=== PATIENT | female | born 1965 | race African-American/Black ===

== ENCOUNTER 2018-09-06 01:08 | Inpatient (IN) ==
--- NOTE | 2018-09-06 01:20 | ED ---
HPI General Chief complaint: Stroke Alert Stated complaint: poss stroke Time Seen by Provider: 09/06/18 01:14 Source: patient and EMS Mode of arrival: EMS History of Present Illness HPI narrative: The patient is a 53 year old female who presents to the [facility] emergency department with a history of calling her friend regarding of severe headache sometime prior to arrival. According to ambulance services the patient was last seen normal sometime between 8 and 9 PM. Upon the friends arrival the patient was assisted out of bed and fell to the ground. The patient had flaccid weakness of the left upper and left lower extremity noted. The patient had a left-sided facial droop and slurred speech. Stroke alert was called prior to arrival. The patient reports having a headache on the right side of her head over the caodaism. The patient had one episode of vomiting prior to arrival. The patient denies any prior history of stroke. The patient does have a prior history of hypertension and diabetes mellitus. She denies any prior history of cardiac arrhythmia. On review of systems otherwise, the patient denies having any known recent fevers, cough, congestion, neck pain, chest pain, shortness of breath, abdominal pain, diarrhea, or urinary symptoms. Related Data Home Medications Medication Instructions Recorded Confirmed amlodipine 10 mg PO DAILY 09/06/18 09/06/18 amlodipine 10 mg PO DAILY 09/06/18 09/06/18 amoxicillin 500 mg PO TID 09/06/18 09/06/18 hydrocodone-acetaminophen 2 tab PO Q6H PRN 09/06/18 09/06/18 ibuprofen 600 mg PO QID PRN 09/06/18 09/06/18 ibuprofen 800 mg PO QID PRN 09/06/18 09/06/18 metoprolol tartrate 25 mg PO BID 09/06/18 09/06/18 naproxen 500 mg PO BID 09/06/18 09/06/18 Allergies Allergy/AdvReac Type Severity Reaction Status Date / Time loratadine [From Claritin] Allergy unknown Verified 09/06/18 01:20 Review of Systems ROS: all other systems reviewed are negative PMFSH History History Provided By: Patient and General Cleaner / EMT Medical History Medical History Diabetes (Acute) Hypertension (Acute) Social History Social History Substance History: No History of Abuse Second Hand Smoke Exposure: Yes (Smoke Marijuana daily.) Smoking Status: Former smoker How Often Do You Have a Drink Containing Alcohol: 2 to 4 times a month Recent Travel in [facility] within the Last 8 Weeks: No Recent Out of Country Travel within the Last 8 Weeks: No Exam Const General: cooperative and well developed Nutritional Appearance: well nourished Orientation: alert, awake and oriented x3 HENOH Head: normocephalic and atraumatic Nose: no nasal discharge and no epistaxis Mouth: moist mucous membranes Eyes Sclera: normal sclerae Pupils: PERRL Neck Neck: no meningeal signs, trachea midline and no JVD Resp Effort & Inspection: no use of accessory muscles Auscultation: clear to auscultation bilaterally Cardio Rate: regular rate Rhythm: abnormal rhythm (Frequent PVCs noted on the monitor.) irregularly irregular Heart Sounds: no murmurs GI Inspection: non-distended Palpation: soft, no hepatosplenomegaly and nontender Skin General: dry skin (warm) Neuro General: alert, awake and oriented x3 Cranial Nerves: other (Cranial nerves II through XII are intact except the patient has facial droop on the left side. The patient also has a gaze deficit with looking to the left on extraocular motion testing. The patient has an attention to the left side both upper and lower extremity.) Speech: other (Mildly slurred speech is noted.) Motor: strength abnormal (The patient is noted to have flaccid paralysis of the left upper and left lower extremity. The patient has 5/5 strength in the right upper and right lower extremity.) Sensory Exam: other (The patient has no significant sensation noted at all in the left upper and left lower extremity on dermatomal testing. Normal dermatomal testing on the right side.) Extrem General: normal to inspection, no clubbing, no cyanosis and no edema Psych Mood: congruent mood Affect: normal affect Judgment: judgment good Course Initial Documented Vital Signs Pulse Rate 106 H 09/06/18 01:08 Respiratory Rate 14 09/06/18 01:08 Blood Pressure 157/98 H 09/06/18 01:08 Pulse Oximetry 90 L 09/06/18 01:08 Last Documented Vital Signs Temperature 97.6 F 09/08/18 08:00 Pulse Rate 97 H 09/08/18 08:00 Respiratory Rate 19 09/08/18 08:16 Blood Pressure 113/69 09/08/18 08:00 Pulse Oximetry 95 09/08/18 08:00 Critical Care Time Critical Care Time: Yes Total Critical Care Time: 42 Attestation: Aggregate critical care time was 42 minutes. Time to perform other separately billable procedures was not included in the critical care time. My time did not include minutes spent treating any other patients simultaneously or on activities that did not directly contribute to the patient's treatment. The services I provided to this patient were to treat and/or prevent clinically significant deterioration that could result in: Progression of neurologic disability, versus respiratory failure I provided critical care services requiring my management, as noted below: Chart data review, documentation time, medication orders and management, vital sign assessments/reviewing monitor data, ordering and reviewing lab tests, ordering and interpreting/reviewing x-rays and diagnostic studies, care of the patient and discussion of the patient with the admitting physicians. NIH Stroke Scale NIHSS Time Completed NIHSS Time Completed: 01:07 NIH Stroke Scale Level of Consciousness: 0-Alert Orientation Questions: 0-Answers both correct Responds to Commands: 0-Both tasks correct Gaze Eye Movement: 0-Horizontal movement WNL Visual Mishra: 0-No visual field defect Facial Movement: 2-Partial facial palsy Motor Functions Arm LEFT: 3-No effort against gravity Motor Functions Arm RIGHT: 0-No drift Motor Functions Leg LEFT: 3-No effort against gravity Motor Functions Leg RIGHT: 0-No drift Limb Ataxia: 0-No ataxia Sensory Loss: 2-Severe sensory loss Best Language: 0-Normal Articulation: 1-Mild dysarthia Extinction or Inattention Sensory: 2-Loss 2 modalities Total: 13 Medical Decision Making MDM Narrative Medical decision making narrative: During the course of the patient's emergency department visit, the patient's history, examination, and differential diagnosis were reviewed with the patient. The patient was placed on a nuclear monitoring technician with oximetry and frequent blood pressure monitoring. The patient had IV access obtained and blood work sent for analysis. Stroke alert was called prior to the patient's arrival. The neurologist was called prior to the patient 's arrival at 1:05 AM and I spoke to her about the patient's report by radio as the patient had not yet been examined by me as the patient had not yet arrived in the emergency department. The patient's weight is 128.4 kg. The patient was initially provided normal saline at 70 mL/hr. I spoke to Dr. Flores, the reading radiologist regarding this patient's noncontrast CT scan of the brain result which is reportedly negative at 1:33 AM. CTA of the head, neck, perfusion studies were done. I received a phone call back from , the radiologist at 2:05 AM regarding this. He reports that the interventional radiologist, Dr. Layne is coming in as the patient has a complete occlusion of the right MCA. He also called Dr. Britt regarding these results. Dr. Britt called me at 2:13 AM regarding these results. She reports that the patient is not a candidate for intravenous TPA, however the patient could be a candidate for interventional radiology treatment. The patient's case including history, pertinent physical examination findings, and laboratory studies were discussed with Dr. Donaldson, the afterschool. It was agreed that the patient would be admitted to the afterschool's service. The patient's results were discussed with the patient, including the plan of care. I explained that further testing and/ or monitoring is indicated based on the patient's history, examination, and/ or laboratory findings. Therefore, I recommended admission for additional evaluation. The patient expressed understanding and was agreeable with this plan. The patient was admitted to the hospital in critical condition and sent to a bed under the care of the afterschool's service. Medical Screen Exam Complete: Yes Emergency Medical Condition: Yes Differential Diagnosis Differential Diagnosis: Ischemic stroke, versus hemorrhagic stroke, versus intracranial mass, versus hypoglycemia Medical Records Medical records reviewed: Yes I reviewed the patient's medical records. Lab Data Lab results reviewed: Yes I reviewed the patient's lab results. Result diagrams: 09/07/18 03:09 09/07/18 03:09 Lab Results 09/06/18 09/06/18 09/06/18 Range/Units 01:10 01:14 01:20 WBC 6.6 (4.0-11.0) th/mm3 RBC 4.51 (4.00-5.30) mil/mm3 Hgb 13.4 (11.6-15.3) gm/dL POC Hgb (Calc) 13.3 (11.6-15.3) g/dL Hct 39.6 (35.0-46.0) % POC Hct 39.0 (35-46.0) % MCV 87.7 (80.0-100.0) fL MCH 29.6 (27.0-34.0) pg MCHC 33.8 (32.0-36.0) % RDW 15.0 (11.6-17.2) % Plt Count 189 (150-450) th/mm3 MPV 8.9 (7.0-11.0) fL Neut % (Auto) 70.1 H (16.0-70.0) % Lymph % (Auto) 23.7 (9.0-44.0) % Starr % (Auto) 4.8 (0.0-8.0) % Eos % (Auto) 0.4 (0.0-4.0) % Baso % (Auto) 1.0 (0.0-2.0) % Neut # (Auto) 4.7 (1.8-7.7) th/mm3 Lymph # (Auto) 1.6 (1.0-4.8) th/mm3 Starr # (Auto) 0.3 (0.0-0.9) th/mm3 Eos # (Auto) 0.0 (0.0-0.4) th/mm3 Baso # (Auto) 0.1 (0.0-0.2) th/mm3 WBC Differential . Differential Comment Auto diff final PT 9.7 L (9.8-11.6) sec INR 1.0 Ratio APTT 23.0 L (23.4-31.7) sec Fibrinogen 348 (227-377) mg/dL POC Sodium 143 (137-144) mmol/L Sodium (136-145) meq/L POC Potassium 3.7 (3.6-5.0) mmol/L Potassium (3.5-5.1) meq/L POC Chloride 109 (102-111) mmol/L Chloride (98-107) meq/L Carbon Dioxide (21.0-32.0) meq/L Anion Gap (5-15) meq/L POC BUN 18 (5-21) mg/dL BUN (7-18) mg/dL Creatinine (0.50-1.00) mg/dL POC Creatinine 1.2 (0.6-1.3) mg/dL Estimated GFR (>89) mL/min POC Glucose 145 H (68-110) mg/dL Random Glucose (74-106) mg/dL Hemoglobin A1c (4.3-6.0) % Calcium (8.5-10.1) mg/dL Phosphorus (2.5-4.9) mg/dL Magnesium (1.5-2.5) mg/dL Total Bilirubin (0.2-1.0) mg/dL AST (15-37) U/L ALT (10-53) U/L Alkaline Phosphatase (45-117) U/L Total Creatine Kinase 107 (26-192) U/L Troponin I Less than 0.02 L (0.02-0.05) ng/mL Total Protein (6.4-8.2) g/dL Albumin (3.4-5.0) g/dL Triglycerides (42-150) mg/dL Cholesterol (120-200) mg/dL LDL Cholesterol, Calc (0-99) mg/dL HDL Cholesterol (40.0-60.0) mg/dL Cholesterol/HDL Ratio Ratio Beta HCG, Quant 1 (0-5) mIU/mL Urine Color (Yellw/Straw) Urine Clarity (Clear) Urine pH (5.0-8.5) Ur Specific [place] (1.002-1.035) Urine Protein (Neg-Trace) mg/dL Urine Glucose (UA) (Negative) mg/dL Urine Ketones (Negative) mg/dL Urine Occult Blood (Negative) Urine Nitrate (Negative) Urine Bilirubin (Negative) Urine Urobilinogen (Less than 2) mg/dL Ur Leukocyte Esterase (Negative) Urine RBC (0-3) /hpf Urine WBC (0-5) /hpf Ur Squamous Epith Cells (0-5) /hpf Urine Mucus (Occasional) /lpf Micro UA Comment Ur Microscopic Review Urine Culture Comments Nasal Screen MRSA (PCR) (Negative) Urine Opiates Screen (Neg) Ur Barbiturates Screen (Neg) Ur Amphetamines Screen (Neg) U Benzodiazepines Scrn (Neg) Urine Cocaine Screen (Neg) U Cannabinoids Screen (Neg) Blood Type Blood Type Recheck Antibody Screen 09/06/18 09/06/18 09/06/18 Range/Units 01:20 02:20 02:20 WBC (4.0-11.0) th/mm3 RBC (4.00-5.30) mil/mm3 Hgb (11.6-15.3) gm/dL POC Hgb (Calc) (11.6-15.3) g/dL Hct (35.0-46.0) % POC Hct (35-46.0) % MCV (80.0-100.0) fL MCH (27.0-34.0) pg MCHC (32.0-36.0) % RDW (11.6-17.2) % Plt Count (150-450) th/mm3 MPV (7.0-11.0) fL Neut % (Auto) (16.0-70.0) % Lymph % (Auto) (9.0-44.0) % Starr % (Auto) (0.0-8.0) % Eos % (Auto) (0.0-4.0) % Baso % (Auto) (0.0-2.0) % Neut # (Auto) (1.8-7.7) th/mm3 Lymph # (Auto) (1.0-4.8) th/mm3 Starr # (Auto) (0.0-0.9) th/mm3 Eos # (Auto) (0.0-0.4) th/mm3 Baso # (Auto) (0.0-0.2) th/mm3 WBC Differential Differential Comment PT (9.8-11.6) sec INR Ratio APTT (23.4-31.7) sec Fibrinogen (227-377) mg/dL POC Sodium (137-144) mmol/L Sodium (136-145) meq/L POC Potassium (3.6-5.0) mmol/L Potassium (3.5-5.1) meq/L POC Chloride (102-111) mmol/L Chloride (98-107) meq/L Carbon Dioxide (21.0-32.0) meq/L Anion Gap (5-15) meq/L POC BUN (5-21) mg/dL BUN (7-18) mg/dL Creatinine (0.50-1.00) mg/dL POC Creatinine (0.6-1.3) mg/dL Estimated GFR (>89) mL/min POC Glucose (68-110) mg/dL Random Glucose (74-106) mg/dL Hemoglobin A1c (4.3-6.0) % Calcium (8.5-10.1) mg/dL Phosphorus (2.5-4.9) mg/dL Magnesium (1.5-2.5) mg/dL Total Bilirubin (0.2-1.0) mg/dL AST (15-37) U/L ALT (10-53) U/L Alkaline Phosphatase (45-117) U/L Total Creatine Kinase (26-192) U/L Troponin I (0.02-0.05) ng/mL Total Protein (6.4-8.2) g/dL Albumin (3.4-5.0) g/dL Triglycerides (42-150) mg/dL Cholesterol (120-200) mg/dL LDL Cholesterol, Calc (0-99) mg/dL HDL Cholesterol (40.0-60.0) mg/dL Cholesterol/HDL Ratio Ratio Beta HCG, Quant (0-5) mIU/mL Urine Color Yellow (Yellw/Straw) Urine Clarity Clear (Clear) Urine pH 5.0 (5.0-8.5) Ur Specific [place] 1.033 (1.002-1.035) Urine Protein Negative (Neg-Trace) mg/dL Urine Glucose (UA) Negative (Negative) mg/dL Urine Ketones Trace H (Negative) mg/dL Urine Occult Blood Negative (Negative) Urine Nitrate Negative (Negative) Urine Bilirubin Negative (Negative) Urine Urobilinogen Less than 2 (Less than 2) mg/dL Ur Leukocyte Esterase Negative (Negative) Urine RBC 1 (0-3) /hpf Urine WBC 1 (0-5) /hpf Ur Squamous Epith Cells 1 (0-5) /hpf Urine Mucus Few H (Occasional) /lpf Micro UA Comment Cath-culture not ind Ur Microscopic Review Not Reportable Urine Culture Comments Cath-cult not ind Nasal Screen MRSA (PCR) (Negative) Urine Opiates Screen Neg (Neg) Ur Barbiturates Screen Neg (Neg) Ur Amphetamines Screen Neg (Neg) U Benzodiazepines Scrn Neg (Neg) Urine Cocaine Screen Neg (Neg) U Cannabinoids Screen Pos H (Neg) Blood Type O Positive Blood Type Recheck Required Antibody Screen Negative 09/06/18 09/06/18 09/06/18 Range/Units 05:41 06:40 08:23 WBC (4.0-11.0) th/mm3 RBC (4.00-5.30) mil/mm3 Hgb (11.6-15.3) gm/dL POC Hgb (Calc) (11.6-15.3) g/dL Hct (35.0-46.0) % POC Hct (35-46.0) % MCV (80.0-100.0) fL MCH (27.0-34.0) pg MCHC (32.0-36.0) % RDW (11.6-17.2) % Plt Count (150-450) th/mm3 MPV (7.0-11.0) fL Neut % (Auto) (16.0-70.0) % Lymph % (Auto) (9.0-44.0) % Starr % (Auto) (0.0-8.0) % Eos % (Auto) (0.0-4.0) % Baso % (Auto) (0.0-2.0) % Neut # (Auto) (1.8-7.7) th/mm3 Lymph # (Auto) (1.0-4.8) th/mm3 Starr # (Auto) (0.0-0.9) th/mm3 Eos # (Auto) (0.0-0.4) th/mm3 Baso # (Auto) (0.0-0.2) th/mm3 WBC Differential Differential Comment PT (9.8-11.6) sec INR Ratio APTT (23.4-31.7) sec Fibrinogen (227-377) mg/dL POC Sodium (137-144) mmol/L Sodium (136-145) meq/L POC Potassium (3.6-5.0) mmol/L Potassium (3.5-5.1) meq/L POC Chloride (102-111) mmol/L Chloride (98-107) meq/L Carbon Dioxide (21.0-32.0) meq/L Anion Gap (5-15) meq/L POC BUN (5-21) mg/dL BUN (7-18) mg/dL Creatinine (0.50-1.00) mg/dL POC Creatinine (0.6-1.3) mg/dL Estimated GFR (>89) mL/min POC Glucose 147 H (68-110) mg/dL Random Glucose (74-106) mg/dL Hemoglobin A1c (4.3-6.0) % Calcium (8.5-10.1) mg/dL Phosphorus (2.5-4.9) mg/dL Magnesium (1.5-2.5) mg/dL Total Bilirubin (0.2-1.0) mg/dL AST (15-37) U/L ALT (10-53) U/L Alkaline Phosphatase (45-117) U/L Total Creatine Kinase (26-192) U/L Troponin I (0.02-0.05) ng/mL Total Protein (6.4-8.2) g/dL Albumin (3.4-5.0) g/dL Triglycerides (42-150) mg/dL Cholesterol (120-200) mg/dL LDL Cholesterol, Calc (0-99) mg/dL HDL Cholesterol (40.0-60.0) mg/dL Cholesterol/HDL Ratio Ratio Beta HCG, Quant (0-5) mIU/mL Urine Color (Yellw/Straw) Urine Clarity (Clear) Urine pH (5.0-8.5) Ur Specific [place] (1.002-1.035) Urine Protein (Neg-Trace) mg/dL Urine Glucose (UA) (Negative) mg/dL Urine Ketones (Negative) mg/dL Urine Occult Blood (Negative) Urine Nitrate (Negative) Urine Bilirubin (Negative) Urine Urobilinogen (Less than 2) mg/dL Ur Leukocyte Esterase (Negative) Urine RBC (0-3) /hpf Urine WBC (0-5) /hpf Ur Squamous Epith Cells (0-5) /hpf Urine Mucus (Occasional) /lpf Micro UA Comment Ur Microscopic Review Urine Culture Comments Nasal Screen MRSA (PCR) Not detected Not detected (Negative) Urine Opiates Screen (Neg) Ur Barbiturates Screen (Neg) Ur Amphetamines Screen (Neg) U Benzodiazepines Scrn (Neg) Urine Cocaine Screen (Neg) U Cannabinoids Screen (Neg) Blood Type Blood Type Recheck Antibody Screen 09/06/18 09/06/18 09/06/18 Range/Units 12:16 12:16 12:29 WBC (4.0-11.0) th/mm3 RBC (4.00-5.30) mil/mm3 Hgb (11.6-15.3) gm/dL POC Hgb (Calc) (11.6-15.3) g/dL Hct (35.0-46.0) % POC Hct (35-46.0) % MCV (80.0-100.0) fL MCH (27.0-34.0) pg MCHC (32.0-36.0) % RDW (11.6-17.2) % Plt Count (150-450) th/mm3 MPV (7.0-11.0) fL Neut % (Auto) (16.0-70.0) % Lymph % (Auto) (9.0-44.0) % Starr % (Auto) (0.0-8.0) % Eos % (Auto) (0.0-4.0) % Baso % (Auto) (0.0-2.0) % Neut # (Auto) (1.8-7.7) th/mm3 Lymph # (Auto) (1.0-4.8) th/mm3 Starr # (Auto) (0.0-0.9) th/mm3 Eos # (Auto) (0.0-0.4) th/mm3 Baso # (Auto) (0.0-0.2) th/mm3 WBC Differential Differential Comment PT (9.8-11.6) sec INR Ratio APTT (23.4-31.7) sec Fibrinogen (227-377) mg/dL POC Sodium (137-144) mmol/L Sodium (136-145) meq/L POC Potassium (3.6-5.0) mmol/L Potassium (3.5-5.1) meq/L POC Chloride (102-111) mmol/L Chloride (98-107) meq/L Carbon Dioxide (21.0-32.0) meq/L Anion Gap (5-15) meq/L POC BUN (5-21) mg/dL BUN (7-18) mg/dL Creatinine (0.50-1.00) mg/dL POC Creatinine (0.6-1.3) mg/dL Estimated GFR (>89) mL/min POC Glucose 102 (68-110) mg/dL Random Glucose (74-106) mg/dL Hemoglobin A1c 5.8 (4.3-6.0) % Calcium (8.5-10.1) mg/dL Phosphorus (2.5-4.9) mg/dL Magnesium (1.5-2.5) mg/dL Total Bilirubin (0.2-1.0) mg/dL AST (15-37) U/L ALT (10-53) U/L Alkaline Phosphatase (45-117) U/L Total Creatine Kinase (26-192) U/L Troponin I (0.02-0.05) ng/mL Total Protein (6.4-8.2) g/dL Albumin (3.4-5.0) g/dL Triglycerides 86 (42-150) mg/dL Cholesterol 141 (120-200) mg/dL LDL Cholesterol, Calc 76 (0-99) mg/dL HDL Cholesterol 47.4 (40.0-60.0) mg/dL Cholesterol/HDL Ratio 2.97 Ratio Beta HCG, Quant (0-5) mIU/mL Urine Color (Yellw/Straw) Urine Clarity (Clear) Urine pH (5.0-8.5) Ur Specific [place] (1.002-1.035) Urine Protein (Neg-Trace) mg/dL Urine Glucose (UA) (Negative) mg/dL Urine Ketones (Negative) mg/dL Urine Occult Blood (Negative) Urine Nitrate (Negative) Urine Bilirubin (Negative) Urine Urobilinogen (Less than 2) mg/dL Ur Leukocyte Esterase (Negative) Urine RBC (0-3) /hpf Urine WBC (0-5) /hpf Ur Squamous Epith Cells (0-5) /hpf Urine Mucus (Occasional) /lpf Micro UA Comment Ur Microscopic Review Urine Culture Comments Nasal Screen MRSA (PCR) (Negative) Urine Opiates Screen (Neg) Ur Barbiturates Screen (Neg) Ur Amphetamines Screen (Neg) U Benzodiazepines Scrn (Neg) Urine Cocaine Screen (Neg) U Cannabinoids Screen (Neg) Blood Type Blood Type Recheck Antibody Screen 09/06/18 09/06/18 09/07/18 Range/Units 17:19 23:26 03:09 WBC 5.2 (4.0-11.0) th/mm3 RBC 3.90 L (4.00-5.30) mil/mm3 Hgb 11.6 (11.6-15.3) gm/dL POC Hgb (Calc) (11.6-15.3) g/dL Hct 34.2 L (35.0-46.0) % POC Hct (35-46.0) % MCV 87.8 (80.0-100.0) fL MCH 29.7 (27.0-34.0) pg MCHC 33.9 (32.0-36.0) % RDW 14.9 (11.6-17.2) % Plt Count 162 (150-450) th/mm3 MPV 8.1 (7.0-11.0) fL Neut % (Auto) 57.2 (16.0-70.0) % Lymph % (Auto) 36.3 (9.0-44.0) % Starr % (Auto) 5.9 (0.0-8.0) % Eos % (Auto) 0.3 (0.0-4.0) % Baso % (Auto) 0.3 (0.0-2.0) % Neut # (Auto) 3.0 (1.8-7.7) th/mm3 Lymph # (Auto) 1.9 (1.0-4.8) th/mm3 Starr # (Auto) 0.3 (0.0-0.9) th/mm3 Eos # (Auto) 0.0 (0.0-0.4) th/mm3 Baso # (Auto) 0.0 (0.0-0.2) th/mm3 WBC Differential . Differential Comment Auto diff final PT (9.8-11.6) sec INR Ratio APTT (23.4-31.7) sec Fibrinogen (227-377) mg/dL POC Sodium (137-144) mmol/L Sodium (136-145) meq/L POC Potassium (3.6-5.0) mmol/L Potassium (3.5-5.1) meq/L POC Chloride (102-111) mmol/L Chloride (98-107) meq/L Carbon Dioxide (21.0-32.0) meq/L Anion Gap (5-15) meq/L POC BUN (5-21) mg/dL BUN (7-18) mg/dL Creatinine (0.50-1.00) mg/dL POC Creatinine (0.6-1.3) mg/dL Estimated GFR (>89) mL/min POC Glucose 112 H 113 H (68-110) mg/dL Random Glucose (74-106) mg/dL Hemoglobin A1c (4.3-6.0) % Calcium (8.5-10.1) mg/dL Phosphorus (2.5-4.9) mg/dL Magnesium (1.5-2.5) mg/dL Total Bilirubin (0.2-1.0) mg/dL AST (15-37) U/L ALT (10-53) U/L Alkaline Phosphatase (45-117) U/L Total Creatine Kinase (26-192) U/L Troponin I (0.02-0.05) ng/mL Total Protein (6.4-8.2) g/dL Albumin (3.4-5.0) g/dL Triglycerides (42-150) mg/dL Cholesterol (120-200) mg/dL LDL Cholesterol, Calc (0-99) mg/dL HDL Cholesterol (40.0-60.0) mg/dL Cholesterol/HDL Ratio Ratio Beta HCG, Quant (0-5) mIU/mL Urine Color (Yellw/Straw) Urine Clarity (Clear) Urine pH (5.0-8.5) Ur Specific [place] (1.002-1.035) Urine Protein (Neg-Trace) mg/dL Urine Glucose (UA) (Negative) mg/dL Urine Ketones (Negative) mg/dL Urine Occult Blood (Negative) Urine Nitrate (Negative) Urine Bilirubin (Negative) Urine Urobilinogen (Less than 2) mg/dL Ur Leukocyte Esterase (Negative) Urine RBC (0-3) /hpf Urine WBC (0-5) /hpf Ur Squamous Epith Cells (0-5) /hpf Urine Mucus (Occasional) /lpf Micro UA Comment Ur Microscopic Review Urine Culture Comments Nasal Screen MRSA (PCR) (Negative) Urine Opiates Screen (Neg) Ur Barbiturates Screen (Neg) Ur Amphetamines Screen (Neg) U Benzodiazepines Scrn (Neg) Urine Cocaine Screen (Neg) U Cannabinoids Screen (Neg) Blood Type Blood Type Recheck Antibody Screen 09/07/18 09/07/18 09/07/18 Range/Units 03:09 03:09 05:20 WBC (4.0-11.0) th/mm3 RBC (4.00-5.30) mil/mm3 Hgb (11.6-15.3) gm/dL POC Hgb (Calc) (11.6-15.3) g/dL Hct (35.0-46.0) % POC Hct (35-46.0) % MCV (80.0-100.0) fL MCH (27.0-34.0) pg MCHC (32.0-36.0) % RDW (11.6-17.2) % Plt Count (150-450) th/mm3 MPV (7.0-11.0) fL Neut % (Auto) (16.0-70.0) % Lymph % (Auto) (9.0-44.0) % Starr % (Auto) (0.0-8.0) % Eos % (Auto) (0.0-4.0) % Baso % (Auto) (0.0-2.0) % Neut # (Auto) (1.8-7.7) th/mm3 Lymph # (Auto) (1.0-4.8) th/mm3 Starr # (Auto) (0.0-0.9) th/mm3 Eos # (Auto) (0.0-0.4) th/mm3 Baso # (Auto) (0.0-0.2) th/mm3 WBC Differential Differential Comment PT 10.4 (9.8-11.6) sec INR 1.0 Ratio APTT 26.1 (23.4-31.7) sec Fibrinogen (227-377) mg/dL POC Sodium (137-144) mmol/L Sodium 144 (136-145) meq/L POC Potassium (3.6-5.0) mmol/L Potassium 3.6 (3.5-5.1) meq/L POC Chloride (102-111) mmol/L Chloride 114 H (98-107) meq/L Carbon Dioxide 22.1 (21.0-32.0) meq/L Anion Gap 8 (5-15) meq/L POC BUN (5-21) mg/dL BUN 9 (7-18) mg/dL Creatinine 0.90 (0.50-1.00) mg/dL POC Creatinine (0.6-1.3) mg/dL Estimated GFR 80 L (>89) mL/min POC Glucose 102 (68-110) mg/dL Random Glucose 115 H (74-106) mg/dL Hemoglobin A1c (4.3-6.0) % Calcium 8.0 L (8.5-10.1) mg/dL Phosphorus 2.1 L (2.5-4.9) mg/dL Magnesium 1.8 (1.5-2.5) mg/dL Total Bilirubin 1.3 H (0.2-1.0) mg/dL AST 19 (15-37) U/L ALT 30 (10-53) U/L Alkaline Phosphatase 53 (45-117) U/L Total Creatine Kinase (26-192) U/L Troponin I (0.02-0.05) ng/mL Total Protein 6.5 (6.4-8.2) g/dL Albumin 3.1 L (3.4-5.0) g/dL Triglycerides (42-150) mg/dL Cholesterol (120-200) mg/dL LDL Cholesterol, Calc (0-99) mg/dL HDL Cholesterol (40.0-60.0) mg/dL Cholesterol/HDL Ratio Ratio Beta HCG, Quant (0-5) mIU/mL Urine Color (Yellw/Straw) Urine Clarity (Clear) Urine pH (5.0-8.5) Ur Specific [place] (1.002-1.035) Urine Protein (Neg-Trace) mg/dL Urine Glucose (UA) (Negative) mg/dL Urine Ketones (Negative) mg/dL Urine Occult Blood (Negative) Urine Nitrate (Negative) Urine Bilirubin (Negative) Urine Urobilinogen (Less than 2) mg/dL Ur Leukocyte Esterase (Negative) Urine RBC (0-3) /hpf Urine WBC (0-5) /hpf Ur Squamous Epith Cells (0-5) /hpf Urine Mucus (Occasional) /lpf Micro UA Comment Ur Microscopic Review Urine Culture Comments Nasal Screen MRSA (PCR) (Negative) Urine Opiates Screen (Neg) Ur Barbiturates Screen (Neg) Ur Amphetamines Screen (Neg) U Benzodiazepines Scrn (Neg) Urine Cocaine Screen (Neg) U Cannabinoids Screen (Neg) Blood Type Blood Type Recheck Antibody Screen 09/07/18 09/07/18 Range/Units 12:51 17:47 WBC (4.0-11.0) th/mm3 RBC (4.00-5.30) mil/mm3 Hgb (11.6-15.3) gm/dL POC Hgb (Calc) (11.6-15.3) g/dL Hct (35.0-46.0) % POC Hct (35-46.0) % MCV (80.0-100.0) fL MCH (27.0-34.0) pg MCHC (32.0-36.0) % RDW (11.6-17.2) % Plt Count (150-450) th/mm3 MPV (7.0-11.0) fL Neut % (Auto) (16.0-70.0) % Lymph % (Auto) (9.0-44.0) % Starr % (Auto) (0.0-8.0) % Eos % (Auto) (0.0-4.0) % Baso % (Auto) (0.0-2.0) % Neut # (Auto) (1.8-7.7) th/mm3 Lymph # (Auto) (1.0-4.8) th/mm3 Starr # (Auto) (0.0-0.9) th/mm3 Eos # (Auto) (0.0-0.4) th/mm3 Baso # (Auto) (0.0-0.2) th/mm3 WBC Differential Differential Comment PT (9.8-11.6) sec INR Ratio APTT (23.4-31.7) sec Fibrinogen (227-377) mg/dL POC Sodium (137-144) mmol/L Sodium (136-145) meq/L POC Potassium (3.6-5.0) mmol/L Potassium (3.5-5.1) meq/L POC Chloride (102-111) mmol/L Chloride (98-107) meq/L Carbon Dioxide (21.0-32.0) meq/L Anion Gap (5-15) meq/L POC BUN (5-21) mg/dL BUN (7-18) mg/dL Creatinine (0.50-1.00) mg/dL POC Creatinine (0.6-1.3) mg/dL Estimated GFR (>89) mL/min POC Glucose 95 126 H (68-110) mg/dL Random Glucose (74-106) mg/dL Hemoglobin A1c (4.3-6.0) % Calcium (8.5-10.1) mg/dL Phosphorus (2.5-4.9) mg/dL Magnesium (1.5-2.5) mg/dL Total Bilirubin (0.2-1.0) mg/dL AST (15-37) U/L ALT (10-53) U/L Alkaline Phosphatase (45-117) U/L Total Creatine Kinase (26-192) U/L Troponin I (0.02-0.05) ng/mL Total Protein (6.4-8.2) g/dL Albumin (3.4-5.0) g/dL Triglycerides (42-150) mg/dL Cholesterol (120-200) mg/dL LDL Cholesterol, Calc (0-99) mg/dL HDL Cholesterol (40.0-60.0) mg/dL Cholesterol/HDL Ratio Ratio Beta HCG, Quant (0-5) mIU/mL Urine Color (Yellw/Straw) Urine Clarity (Clear) Urine pH (5.0-8.5) Ur Specific [place] (1.002-1.035) Urine Protein (Neg-Trace) mg/dL Urine Glucose (UA) (Negative) mg/dL Urine Ketones (Negative) mg/dL Urine Occult Blood (Negative) Urine Nitrate (Negative) Urine Bilirubin (Negative) Urine Urobilinogen (Less than 2) mg/dL Ur Leukocyte Esterase (Negative) Urine RBC (0-3) /hpf Urine WBC (0-5) /hpf Ur Squamous Epith Cells (0-5) /hpf Urine Mucus (Occasional) /lpf Micro UA Comment Ur Microscopic Review Urine Culture Comments Nasal Screen MRSA (PCR) (Negative) Urine Opiates Screen (Neg) Ur Barbiturates Screen (Neg) Ur Amphetamines Screen (Neg) U Benzodiazepines Scrn (Neg) Urine Cocaine Screen (Neg) U Cannabinoids Screen (Neg) Blood Type Blood Type Recheck Antibody Screen Imaging Data Radiologist's impression: Cerebral Angiography 09/06/18 00:00 CONCLUSION: Successful stroke salvage thromboembolectomy for right middle cerebral artery occlusion as described in detail above. Head MRI 09/06/18 00:00 CONCLUSION: 1. Acute infarction right middle cerebral artery distribution post thrombectomy without evidence of acute blood products or cerebral edema. Chest X-Ray 09/06/18 01:14 CONCLUSION: Moderate cardiomegaly with no evidence of pulmonary edema. Head CTA 09/06/18 01:14 CONCLUSION: 1. Occlusion of the right middle cerebral artery in the distal M1 segment. Report was called by [Dr. Woods to Dr. So at 0210 hours. ] Neck CTA 09/06/18 01:14 CONCLUSION: 1. Suboptimal opacification. 2. 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 3. No significant stenosis in the common carotid or internal carotid arteries. CT CAD 09/06/18 01:15 CONCLUSION: Physiological brain perfusion parameters with RAPID analysis as above. The decision for consideration of therapy is multi factorial and multi disciplinary relying on subjective and objective clinical data. This data is not construed or intended to be the sole determinant of treatment eligibility. Head CT 09/06/18 01:20 CONCLUSION: 1. Negative noncontrast head CT. Report was called by [Dr Woods to Dr. Quesada at 0132 hours. ] Head MRA 09/06/18 17:09 CONCLUSION: 1. Negative MRA [place] ([place] [place]) non contrast. ECG Data Attestation: I personally reviewed and interpreted this ECG as follows: Interpretation: The patient had a EKG done on arrival. The patient's EKG reveals a sinus tachycardia with occasional ventricular premature complexes, heart rate of 105, QRS duration is 102 ms, QTC 409 ms. Signs of ventricular hypertrophy are noted, nonspecific ST-T wave abnormalities are noted, T waves are inverted in V4, V5, V6. Discharge Plan Discharge Disposition Patient Disposition: 30 Still Patient Discharge Details Diagnosis: Acute right MCA stroke Physicians Team ED Provider: Katerin Quesada Primary Care Provider: UNKNOWN, Attending Provider: Stew Richardson Other Providers: Ursula Britt ; Itz Romero ; Shakeel Sylvester ; Dionicio Cabello ; Stew Richardson Discharge Interventions Interventions: ED Discharge Assessment Last Done: 09/06/18 03:00 Vital Signs Last Done: 09/06/18 03:00 Status ED Status: Left Department Discharge Information Discharge Date/Time: 09/06/18 03:00
--- NOTE | 2018-09-06 01:36 | CT ---
EXAM DATE: 09/06/2018 1:29 AM EST AGE/SEX: 53 years / Female INDICATIONS: Stroke Alert. Slurred speech with left sided weakness. CLINICAL DATA: This is the patient's initial encounter. Patient reports that signs and symptoms have been present for 1 day and indicates a pain score of 0/10. MEDICAL/SURGICAL HISTORY: Diabetes mellitus type II. Hypertension. None. RADIATION DOSE: 43.42 CTDI (mGy) COMPARISON: No prior exams available for comparison. TECHNIQUE: CT of the head without contrast. Using automated exposure control and adjustment of the mA and/or kV according to patient size, radiation dose was kept as low as reasonably achievable to ob tain optimal diagnostic quality images. DICOM format image data is available electronically for revi ew and comparison. FINDINGS: Cerebrum: The ventricles are normal for age. No evidence of midline shift, mass lesion, hemorrhage or acute infarction. No extraaxial fluid collections are seen. Posterior Fossa: The cerebellum and brainstem are intact. The 4th ventricle is midline. The cerebe llopontine angle is unremarkable. Extracranial: The visualized portion of the orbits is intact. Skull: The calvaria is intact. No evidence of skull fracture. CONCLUSION: 1. Negative noncontrast head CT. Report was called by [Dr Woods to Dr. Quesada at 0132 hours. ] Electronically signed by: René Woods MD 09/06/2018 1:34 AM EST
[2018-09-06 01:44] LABS: Beta HCG,Quantitative 1 mIU/mL (0-5); Creatine Kinase 107 U/L (26-192)
[2018-09-06 01:54] LABS: Prothrombin Time 9.7 sec (9.8-11.6)
--- NOTE | 2018-09-06 02:18 | CT ---
EXAM DATE: 09/06/2018 1:55 AM EST AGE/SEX: 53 years / Female INDICATIONS: Stroke Alert. Slurred speech with left sided weakness. CLINICAL DATA: This is the patient's initial encounter. Patient reports that signs and symptoms have been present for 1 day and indicates a pain score of 0/10. MEDICAL/SURGICAL HISTORY: Diabetes mellitus type II. Hypertension. None. RADIATION DOSE: 28.75 CTDI (mGy) ; Combined studies COMPARISON: No prior exams available for comparison. TECHNIQUE: Volumetric scanning was performed using a multi-row detector CT scanner during bolus infu manuelito of 60 ml Visipaque 320 (iodixanol) nonionic water-soluble contrast as a cumulative dose for mul tiple exams. The data was post processed with a variety of visualization algorithms including full volume maximum intensity projection, multi-planar sliding thin slab reformation, curved planar reform ation, and surface rendering techniques. Using automated exposure control and adjustment of the mA a nd/or kV according to patient size, radiation dose was kept as low as reasonably achievable to obtain optimal diagnostic quality images. DICOM format image data is available electronically for review a nd comparison. FINDINGS: There is excellent visualization of the major intracranial arteries out to the second-order branch ve ssels. There is abrupt cut off of the right middle cerebral artery in the distal M1 segment. There i s a decrease in the opacification and number of the distal M2 and M3 branches. There is no additional evidence for aneurysm, vessel truncation or stenosis, and no evidence for vascular malformation. CONCLUSION: 1. Occlusion of the right middle cerebral artery in the distal M1 segment. Report was called by [Dr. Woods to Dr. So at 0210 hours. ] Electronically signed by: René Woods MD 09/06/2018 2:16 AM EST
[2018-09-06] MEDS ORDERED: Morphine Sulfate Inj 2 MG/ML Vial IV.PUSH ONE (02:19)
--- NOTE | 2018-09-06 02:20 | CT ---
EXAM DATE: 09/06/2018 2:16 AM EST AGE/SEX: 53 years / Female INDICATIONS: Stroke alert; slurred speech and left sided weakness. CLINICAL DATA: This is the patient's initial encounter. Patient reports that signs and symptoms have been present for 1 day and indicates a pain score of 0/10. MEDICAL/SURGICAL HISTORY: Non-responsive. Non-responsive. RADIATION DOSE: 314.12 CTDI (mGy) COMPARISON: [facility], CTA HEAD W CONTRAST W 3D, 09/06/2018. . TECHNIQUE: CT of the head after intravenous administration of 40 ml Visipaque 320 (iodixanol) nonio [place] water-soluble contrast as a single exam dose. Using automated exposure control and adjustment of the mA and/or kV according to patient size, radiation dose was kept as low as reasonably achievable to obtain optimal diagnostic quality images. DICOM format image data is available electronically for review and comparison. FINDINGS: 1. CBF (<30%) Volume (ml): 0 2. Perfusion (Tmax>6.0s) Volume (ml): 143ml 3. Mismatch Volume (ml) (Tmax>6.0 - CBF): 143ml CONCLUSION: Physiological brain perfusion parameters with RAPID analysis as above. The decision for consideration of therapy is multi factorial and multi disciplinary relying on subjec tive and objective clinical data. This data is not construed or intended to be the sole determinant of treatment eligibility. Electronically signed by: René Woods MD 09/06/2018 2:18 AM EST
--- NOTE | 2018-09-06 02:23 | CT ---
EXAM DATE: 09/06/2018 2:18 AM EST AGE/SEX: 53 years / Female INDICATIONS: Stroke Alert. Slurred speech with left sided weakness. CLINICAL DATA: This is the patient's initial encounter. Patient reports that signs and symptoms have been present for 1 day and indicates a pain score of 0/10. MEDICAL/SURGICAL HISTORY: Diabetes mellitus type II. Hypertension. None. RADIATION DOSE: 28.75 CTDI (mGy) ; Combined studies COMPARISON: [facility], CTA HEAD W CONTRAST W 3D, 09/06/2018. . TECHNIQUE: Volumetric scanning was performed using a multirow detector CT scanner during bolus infus ion of 60 ml Visipaque 320 (iodixanol) nonionic water-soluble contrast as a cumulative dose for mult iple exams. The data was postprocessed with a variety of visualization algorithms including full-vo lume maximum intensity projection, multiplanar sliding thin-slab reformation, curved-planar reformati on, and surface-rendering techniques. Using automated exposure control and adjustment of the mA and/ or kV according to patient size, radiation dose was kept as low as reasonably achievable to obtain op timal diagnostic quality images. DICOM format image data is available electronically for review and comparison. FINDINGS: There is suboptimal opacification of the aorta. This limits visualization. Aortic Arch: There is a two-vessel bovine type origin of the great vessels from the aorta. No evide nce of ostial narrowing Right Carotid: The common carotid artery is intact. The carotid bulb has a normal configuration wit hout ulceration or narrowing. The internal carotid artery lumen is smooth without stenosis. The ext ernal carotid artery is intact. Left Carotid: The common carotid artery is intact. The carotid bulb has a normal configuration with out ulceration or narrowing. The internal carotid artery lumen is smooth without stenosis. The exte rnal carotid artery is intact. Vertebrals: The vertebral arteries have a symmetric diameter. No stenotic lesions are seen. Percent stenosis is calculated using the diameter of the stenotic region over the diameter of the nor mal distal internal carotid artery. CONCLUSION: 1. Suboptimal opacification. 2. 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 3. No significant stenosis in the common carotid or internal carotid arteries. Electronically signed by: René Woods MD 09/06/2018 2:22 AM EST
--- NOTE | 2018-09-06 02:33 | XR ---
EXAM DATE: 09/06/2018 2:07 AM EST AGE/SEX: 53 years / Female INDICATIONS: Stroke Alert. CLINICAL DATA: This is the patient's initial encounter. Patient reports that signs and symptoms have been present for 1 day and indicates a pain score of 0/10. MEDICAL/SURGICAL HISTORY: . Diabetes mellitus type II. Hypertension. None. COMPARISON: No prior exams available for comparison. FINDINGS: A single AP view of the chest demonstrates the lungs to be symmetrically aerated without evidence of mass, infiltrate or effusion. The heart size is moderately enlarged with globular heart configuratio n. There are multiple overlying electrocardiogram leads. Osseous structures are intact. CONCLUSION: Moderate cardiomegaly with no evidence of pulmonary edema. Electronically signed by: René Woods MD 09/06/2018 2:31 AM EST
[2018-09-06 02:36] LABS: Baso # (Auto) 0.1 th/mm3 (0.0-0.2); Eos % (Auto) 0.4 % (0.0-4.0); Hematocrit 39.6 % (35.0-46.0); Hemoglobin 13.4 gm/dL (11.6-15.3); Lymph # (Auto) 1.6 th/mm3 (1.0-4.8); Lymph % (Auto) 23.7 % (9.0-44.0); Mean Corpuscular HGB Conc 33.8 % (32.0-36.0); Mean Corpuscular Hemoglobin 29.6 pg (27.0-34.0); Mean Corpuscular Volume 87.7 fL (80.0-100.0); Mean Platelet Volume 8.9 fL (7.0-11.0); Mono # (Auto) 0.3 th/mm3 (0.0-0.9); Mono % (Auto) 4.8 % (0.0-8.0); Neut # (Auto) 4.7 th/mm3 (1.8-7.7); Neut % (Auto) 70.1 % (16.0-70.0); Platelet Count 189 th/mm3 (150-450); Red Blood Count 4.51 mil/mm3 (4.00-5.30); White Blood Count 6.6 th/mm3 (4.0-11.0)
[2018-09-06 03:03] LABS: Bilirubin,Urine Negative (Negative); Clarity,Urine Clear (Clear); Color,Urine Yellow (Yellw/Straw); Glucose,Urine (UA) Negative (Negative); Leukocyte Esterase,Urine Negative (Negative); Mucus,Urine Few /lpf (Occasional); Nitrite,Urine Negative (Negative); Specific Gravity,Urine 1.033 (1.002-1.035); Squamous Epithelial Cell,Urine 1 /hpf (0-5)
[2018-09-06 03:06] LABS: Amphetamine Screen,Urine Neg (Neg); Barbiturate Screen,Urine Neg (Neg); Cannabinoid Screen,Urine Pos (Neg); Cocaine Screen,Urine Neg (Neg)
[2018-09-06] MEDS ORDERED: Succinylcholine Inj 100 MG/5 ML Syringe IV.PUSH ONE (03:12)
[2018-09-06] MEDS ORDERED: Esmolol Bolus Inj 100 MG/10 ML Vial IV.PUSH ONE (03:12)
[2018-09-06] MEDS ORDERED: Lidocaine PF 1% Inj 5 ML Syringe OTHER ONE (03:12)
[2018-09-06] MEDS ORDERED: Phenylephrine/NS 1000 MCG/10ML Syringe IV.PUSH ONE (03:12)
[2018-09-06 03:15] LABS: Opiate Screen,Urine Neg (Neg)
[2018-09-06] MEDS ORDERED: Bisacodyl 10 MG Supp RECTAL PRN (03:54)
--- NOTE | 2018-09-06 03:54 | P.HPCC ---
History of Present Illness Primary Care Physician: UNKNOWN History of Present Illness: 53 year old female presents with a history of calling her friend regarding of severe headache sometime prior to arrival. According to ambulance services the patient was last seen normal sometime between 8 and 9 PM. Upon the friends arrival the patient was assisted out of bed and fell to the ground. The patient had flaccid weakness of the left upper and left lower extremity noted. The patient had a left-sided facial droop and slurred speech. Stroke alert was called prior to arrival. The patient reports having a headache on the right side of her head over the [employer]. The patient had one episode of vomiting prior to arrival. The patient denies any prior history of stroke. The patient does have a prior history of hypertension and diabetes mellitus. She denies any prior history of cardiac arrhythmia. On review of systems otherwise, the patient denies having any known recent fevers, cough, congestion, neck pain, chest pain, shortness of breath, abdominal pain, diarrhea, or urinary symptoms. Inpatient Certification: I certify that the inpatient services were ordered in accordance with Medicare regulations governing the order. This includes certification that hospital inpatient services are reasonable and necessary and in the case of services not specified as inpatient-only under 42 CFR 419.22(n), that they are appropriately provided as inpatient services in accordance to with the 2-midnight benchmark under 43 CFR 412.3(e) Review of Systems All other systems reviewed negative except as stated in HPI PMFSH - History History Provided By: Patient, Frame Cleaner / EMT - Medical History Medical History: Medical History (Last Reviewed 09/06/18 @ 02:45 by Katerin Quesada MD) Diabetes Hypertension - Tobacco History Smoking Status: Former smoker - Alcohol History How Often Do You Have a Drink Containing Alcohol: Monthly or less - Substance Use History Substance History: Active Abuse - Immunization History Tetanus Immunization: Unsure Medications and Allergies Active Medications: Active Medications Sodium Chloride (Ns Inj) 1,000 mls @ 70 mls/hr IV.CONT .[id number] ROSAL[place] Allergies Allergy/AdvReac Type Severity Reaction Status Date / Time loratadine [From Claritin] Allergy unknown Verified 09/06/18 01:20 Results - Labs CBC & Chem 7: 09/06/18 01:20 Labs: Short CBC 09/06/18 Range/Units 01:20 WBC 6.6 (4.0-11.0) th/mm3 Hgb 13.4 (11.6-15.3) gm/dL Hct 39.6 (35.0-46.0) % Plt Count 189 (150-450) th/mm3 Cardiac Enzymes 09/06/18 Range/Units 01:14 Total Creatine Kinase 107 (26-192) U/L Troponin I Less than 0.02 L (0.02-0.05) ng/mL Urine 09/06/18 Range/Units 02:20 Urine Color Yellow (Yellw/Straw) Urine Clarity Clear (Clear) Urine pH 5.0 (5.0-8.5) Ur Specific [place] 1.033 (1.002-1.035) Urine Protein Negative (Neg-Trace) mg/dL Urine Glucose (UA) Negative (Negative) mg/dL - Imaging Impressions Chest X-Ray 09/06/18 01:14 CONCLUSION: Moderate cardiomegaly with no evidence of pulmonary edema. Head CTA 09/06/18 01:14 CONCLUSION: 1. Occlusion of the right middle cerebral artery in the distal M1 segment. Report was called by [Dr. Woods to Dr. So at 0210 hours. ] Neck CTA 09/06/18 01:14 CONCLUSION: 1. Suboptimal opacification. 2. 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 3. No significant stenosis in the common carotid or internal carotid arteries. CT CAD 09/06/18 01:15 CONCLUSION: Physiological brain perfusion parameters with RAPID analysis as above. The decision for consideration of therapy is multi factorial and multi disciplinary relying on subjective and objective clinical data. This data is not construed or intended to be the sole determinant of treatment eligibility. Head CT 09/06/18 01:20 CONCLUSION: 1. Negative noncontrast head CT. Report was called by [Dr Woods to Dr. Quesada at 0132 hours. ] Exam Vital signs: Vital Signs 09/06/18 01:08 09/06/18 01:26 09/06/18 01:36 Temperature 98.6 F Pulse Rate 106 H 98 H Respiratory Rate 14 14 Blood Pressure 157/98 H 152/94 H Pulse Oximetry 90 L 94 L 94 L 09/06/18 02:26 09/06/18 02:32 09/06/18 03:00 Temperature Pulse Rate 104 H 103 H 110 H Respiratory Rate 35 H 20 24 Blood Pressure 149/86 H 157/54 H Pulse Oximetry 96 95 95 Intake & Output 09/05/18 09/05/18 09/06/18 06:59 18:59 06:59 Weight 128.4 kg - Constitutional moderate distress - Routine HEENT Exam Head: Present: normocephalic, atraumatic Eye: Present: PERRL ENT: Present: mucous membranes moist - Routine Neck Exam Present: supple, full ROM. Absent: JVD, carotid bruit - Routine Chest/Breast/Axilla Exam Chest wall: Absent: tenderness, mass - Routine Respiratory Exam Absent: accessory muscle use, rhonchi, stridor, wheezes - Routine Cardiovascular Exam Present: RRR, S1, S2 - Routine Abdominal Exam Present: soft, normoactive bowel sounds. Absent: tenderness, distended - Routine Extremities Exam Absent: cyanosis, clubbing, edema - Routine Skin Exam Present: intact. Absent: cyanosis, erythema - Routine Neurological Exam General: alert, awake and oriented x3 Cranial Nerves: other (Cranial nerves II through XII are intact except the patient has facial droop on the left side. The patient also has a gaze deficit with looking to the left on extraocular motion testing. The patient has an attention to the left side both upper and lower extremity.) Speech: other (Mildly slurred speech is noted.) Motor: strength abnormal (The patient is noted to have flaccid paralysis of the left upper and left lower extremity. The patient has 5/5 strength in the right upper and right lower extremity.) Sensory Exam: other (The patient has no significant sensation noted at all in the left upper and left lower extremity on dermatomal testing. Normal dermatomal testing on the right side.) Septic Shock Reassessment Septic shock perfusion: reassessment completed Caprini VTE Risk Assessment Caprini VTE Risk Assessment: Moderate/High Risk (score >= 2) Caprini Risk Assessment Model: Point Value = 1 Point Value = 2 Point Value = 3 Point Value = 5 Age 41-60 Minor surgery BMI > 25 kg/m2 Swollen legs Varicose veins or History of unexplained or recurrent spontaneous Oral contraceptives or hormone replacement Sepsis (< 1 month) Serious lung disease, including pneumonia (< 1 month) Abnormal pulmonary function Acute myocardial infarction Congestive heart failure (< 1 month) History of inflammatory bowel disease Medical patient at bed rest Age 61-74 Arthroscopic surgery Major open surgery (> 45 min) Laparoscopic surgery (> 45 min) Malignancy Confined to bed (> 72 hours) Immobilizing plaster cast Central venous access Age >= 75 History of VTE Family history of VTE Factor V Leiden Prothrombin [id number] Lupus anticoagulant Anticardiolipin antibodies Elevated serum homocysteine Heparin-induced thrombocytopenia Other congenital or acquired thrombophilia Stroke (< 1 month) Elective arthroplasty Hip, pelvis, or leg fracture Acute spinal cord injury (< 1 month) Prophylaxis Regimen: Total Risk Factor Score Risk Level Prophylaxis Regimen 0-1 Low Early ambulation 2 Moderate Order ONE of the following: *Sequential Compression Device (SCD) *Heparin 5000 units SQ BID 3-4 Higher Order ONE of the following medications: *Heparin 5000 units SQ TID *Enoxaparin/Lovenox 40 mg SQ daily (WT < 150 kg, CrCl > 30 mL/min) *Enoxaparin/Lovenox 30 mg SQ daily (WT < 150 kg, CrCl > 10-29 mL/min) *Enoxaparin/Lovenox 30 mg SQ BID (WT < 150 kg, CrCl > 30 mL/min) AND/OR *Sequential Compression Device (SCD) 5 or more Highest Order ONE of the following medications: *Heparin 5000 units SQ TID (Preferred with Epidurals) *Enoxaparin/Lovenox 40 mg SQ daily (WT < 150 kg, CrCl > 30 mL/min) *Enoxaparin/Lovenox 30 mg SQ daily (WT < 150 kg, CrCl > 10-29 mL/min) *Enoxaparin/Lovenox 30 mg SQ BID (WT < 150 kg, CrCl > 30 mL/min) AND *Sequential Compression Device (SCD) Assessment and Plan - Assessment and Plan Plan: Acute right MCA CVA -Status post TPA administration -Thrombectomy per IR -Aspirin and statins -PT and OT eval and treat -Blood pressure control -Further management per neurology Dyslipidemia -Atorvastatin Diabetes mellitus -Sliding scale Hypertension -Nicardipine drip as needed to keep SBP less than 180 DVT GI prophylaxis -Teds SCDs -Heparin subcu started 24 hours post TPA administration -Pepcid 35 minutes of critical care
[2018-09-06] MEDS ORDERED: Chlorhexidine Gluconate 2% 1 Pack (2 Cloths) TOPICAL PRN (04:00)
[2018-09-06] MEDS ORDERED: Heparin 10,000 UNITS/10 ML Vial (for IV use) ONE (04:49)
[2018-09-06] MEDS ORDERED: Sod Chloride 0.9% Inj 1,000 ML IV.CONT SCH (05:00)
[2018-09-06] MEDS: Sod Chloride 0.9% Inj 1,000 ML IV.CONT SCH ×2 (05:48→16:58)
[2018-09-06] MEDS ORDERED: fentaNYL Citrate Inj 100 MCG/2 ML Ampul ONE (06:19)
[2018-09-06] MEDS ORDERED: Dextrose 50% in Water 50 ML Vial IV.PUSH PRN (08:00)
[2018-09-06] MEDS ORDERED: Potassium Phosphate 500 MG Soluble Tablet PO PRN ×2 (08:01)
[2018-09-06] MEDS ORDERED: Potassium Chlor 20 mEq Premix 20 MEQ/100 ML PIGGYBACK IV.SIG PRN ×2 (08:01)
[2018-09-06] MEDS ORDERED: Sodium Phosphate Inj 30 MMOL in Sodium Chlor 0.9% Inj 250 ML IV.SIG PRN (08:01)
[2018-09-06] MEDS ORDERED: Magnesium Sulfate Inj 4 GM in Sodium Chlor 0.9% Inj 92 ML IV.SIG PRN (08:01)
[2018-09-06] MEDS ORDERED: Potassium Chlor 40 mEq Premix 40 MEQ/100 ML PIGGYBACK IV.SIG PRN ×2 (08:01)
[2018-09-06] MEDS ORDERED: Potassium Chloride 25 MEQ Effervescent Tablet PO PRN (08:01)
[2018-09-06] MEDS ORDERED: Potassium Phosphate Inj 30 MMOL in Sodium Chlor 0.9% Inj 250 ML IV.SIG PRN (08:01)
[2018-09-06] MEDS ORDERED: Magnesium Oxide 400 MG Tablet PO PRN (08:01)
[2018-09-06] MEDS ORDERED: Magnesium Sulfate Inj 2 GM in Sodium Chlor 0.9% Inj 96 ML IV.SIG PRN (08:01)
--- NOTE | 2018-09-06 08:05 | P.PNCC ---
Subjective Subjective Remarks/Hospital Course: 53 year old female presents with a history of calling her friend regarding of severe headache sometime prior to arrival. According to ambulance services the patient was last seen normal sometime between 8 and 9 PM. Upon the friends arrival the patient was assisted out of bed and fell to the ground. The patient had flaccid weakness of the left upper and left lower extremity noted. The patient had a left-sided facial droop and slurred speech. Stroke alert was called prior to arrival. The patient reports having a headache on the right side of her head over the mandaen. The patient had one episode of vomiting prior to arrival. The patient denies any prior history of stroke. The patient does have a prior history of hypertension and diabetes mellitus. She denies any prior history of cardiac arrhythmia. On review of systems otherwise, the patient denies having any known recent fevers, cough, congestion, neck pain, chest pain, shortness of breath, abdominal pain, diarrhea, or urinary symptoms. 09/06: Status post thrombectomy by IR and TPA administration, significantly improved neurologic examination. Still remaining some mild weakness on the left upper extremity. Objective Vital Signs / I&O: Vital Signs 09/06/18 01:08 09/06/18 01:26 09/06/18 01:36 Temperature 98.6 F Pulse Rate 106 H 98 H Respiratory Rate 14 14 Blood Pressure 157/98 H 152/94 H Pulse Oximetry 90 L 94 L 94 L 09/06/18 02:26 09/06/18 02:32 09/06/18 03:00 Temperature Pulse Rate 104 H 103 H 110 H Respiratory Rate 35 H 20 24 Blood Pressure 149/86 H 157/54 H Pulse Oximetry 96 95 95 09/06/18 05:15 09/06/18 05:25 09/06/18 05:30 Temperature 97.8 F 97.7 F 97.8 F Pulse Rate 101 H 106 H 101 H Respiratory Rate 16 14 11 L Blood Pressure 125/78 125/78 136/89 Pulse Oximetry 92 L 92 L 92 L 09/06/18 05:45 09/06/18 06:00 09/06/18 06:43 Temperature 97.8 F 97.7 F Pulse Rate 100 H 101 H Respiratory Rate 18 14 Blood Pressure 127/79 127/80 Pulse Oximetry 94 L 93 L 93 L 09/06/18 06:52 09/06/18 07:00 Temperature 97.8 F Pulse Rate 101 H Respiratory Rate 18 Blood Pressure 136/84 Pulse Oximetry 99 100 Intake & Output 09/05/18 09/06/18 09/06/18 18:59 06:59 18:59 Weight 128.4 kg Other: Weight On Admission 128.4 kg Result Diagrams: 09/06/18 01:20 Imaging: Impressions Chest X-Ray 09/06/18 01:14 CONCLUSION: Moderate cardiomegaly with no evidence of pulmonary edema. Head CTA 09/06/18 01:14 CONCLUSION: 1. Occlusion of the right middle cerebral artery in the distal M1 segment. Report was called by [Dr. Woods to Dr. So at 0210 hours. ] Neck CTA 09/06/18 01:14 CONCLUSION: 1. Suboptimal opacification. 2. 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 3. No significant stenosis in the common carotid or internal carotid arteries. CT CAD 09/06/18 01:15 CONCLUSION: Physiological brain perfusion parameters with RAPID analysis as above. The decision for consideration of therapy is multi factorial and multi disciplinary relying on subjective and objective clinical data. This data is not construed or intended to be the sole determinant of treatment eligibility. Head CT 09/06/18 01:20 CONCLUSION: 1. Negative noncontrast head CT. Report was called by [Dr Woods to Dr. Quesada at 0132 hours. ] Objective Remarks: - Constitutional Mild respiratory distress - Routine HEENT Exam Head: Present: normocephalic, atraumatic Eye: Present: PERRL ENT: Present: mucous membranes moist - Routine Neck Exam Present: supple, full ROM. Absent: JVD, carotid bruit - Routine Chest/Breast/Axilla Exam Chest wall: Absent: tenderness, mass - Routine Respiratory Exam Absent: accessory muscle use, rhonchi, stridor, wheezes - Routine Cardiovascular Exam Present: RRR, S1, S2 - Routine Abdominal Exam Present: soft, normoactive bowel sounds. Absent: tenderness, distended - Routine Extremities Exam Absent: cyanosis, clubbing, edema - Routine Skin Exam Present: intact. Absent: cyanosis, erythema - Routine Neurological Exam General: alert, awake and oriented x3 Cranial Nerves: other (Cranial nerves II through XII are intact , improved facial droop on the left side. Also improved a gaze deficit. Speech: Improved slurred speech Motor: strength abnormal (The patient is noted to have significantly improved paralysis of the left upper and left lower extremity 4 out of 5. The patient has 5/5 strength in the right upper and right lower extremity.) Sensory Exam: other (The patient has no significant sensation noted at all in the left upper and left lower extremity on dermatomal testing. Normal dermatomal testing on the right side.) Assessment and Plan - Assessment and Plan Plan: Acute right MCA CVA -Status post TPA administration -Thrombectomy per IR -Aspirin and statins -PT and OT eval and treat -Blood pressure control -Further management per neurology Dyslipidemia -Atorvastatin -Lipid panel Diabetes mellitus -Sliding scale -Hemoglobin A1c Hypertension -Of nicardipine drip -PRN meds if needed to keep SBP less than 180 DVT GI prophylaxis -Teds SCDs -Heparin subcu started 24 hours post TPA administration -Pepcid Level 2
[2018-09-06] MEDS: Senna/Docusate Sodium 8.6/50 MG Tablet PO SCH ×2 (08:17→21:46)
[2018-09-06] MEDS: Chlorhexidine Gluconate 2% 1 Pack (2 Cloths) TOPICAL SCH (08:17)
[2018-09-06] MEDS: Famotidine PF Inj 20 MG/2 ML Vial IV.PUSH SCH ×2 (08:23→21:45)
--- NOTE | 2018-09-06 09:50 | IR ---
EXAM DATE: 09/06/2018 5:34 AM EST AGE/SEX: 53 years / Female INDICATIONS: Patient with a history of stroke. CLINICAL DATA: This is the patient's initial encounter. Patient reports that signs and symptoms have been present for 1 day and indicates a pain score of 0/10. MEDICAL/SURGICAL HISTORY: . HTN Diabetes . Unknown COMPARISON: C, CTA HEAD W CONTRAST W 3D, 09/06/2018. C, CTA NECK W CONTRAST W 3D, 8. C, CT CEREBRAL PERF W CONTRAST W 3D, 09/06/2018. C, CT HEAD W/O CONTRAST, 09/06/2018. . FLUORO TIME (min): 22.6 IMAGE SERIES: 14 ACCESS SITE: Right femoral artery CONTRAST (cc): 140cc Visipaque (iodixanol) MEDICATION(S): 2500 units Heparin IV 2.5mg Verapamil IA 2g cefazolin (Ancef) IV Intra-procedural antibiotics were given as prescribed above. Anesthesia and pain control was provided by the Anesthesia department. DEVICE(S): Right common femoral artery Angio-Seal 6FR . . TIMELINE: Interventional Team Called: 2:20AM Interventional Team Arrived: 2:40AM Interventional Team Ready 2:45AM Patient Arrival: 3:00AM Groin Puncture: 3:36AM Recanalization: 4:15AM PROCEDURE : 1. Ultrasound-guided puncture of the right common femoral artery access site. 2. Angiography of the right common femoral artery access site prior to closure device. 3. Conscious sedation with continuous EKG and Oximetry monitoring. 4. Percutaneous closure of the right common femoral artery access site. 5. Angiography of the right carotid cervical and cerebral circulation 6. Subselective catheterization, right middle cerebral artery, fourth order The risks, benefits and alternatives to the procedure were explained and verbal and written consent w as obtained. The site was prepped in sterile fashion. Full sterile technique was used, including cap, mask, sterile gloves and gown and a large sterile sheet. Hand hygiene and 2% chlorhexidine and/or be tadine/alcohol prep was utilized per protocol for cutaneous antisepsis. The skin and subcutaneous tis sues were infiltrated with local anesthetic solution. Sterile gel and sterile probe cover were utili zed for ultrasound guidance. With ultrasound and fluoroscopic guidance the selected artery was punctured and a vascular sheath was placed. Angiography of the common femoral artery was performed for evaluation prior to percutaneous closure device placement. A diagnostic catheter was placed into the prescribed common carotid artery and angiography was perfor med over the head to confirm vessel occlusion. Subsequent to this a guidewire was placed into the dis italo cervical internal carotid artery and a guide catheter was placed to the level of the skull base. Through this a large bore suction catheter was placed in the face of the clot and suction was perform ed for 90 seconds. With suction still applied the catheter was removed in one piece. The follow-up angiogram through the guide catheter revealed persistence of clot in the distal MCA, ho wever there was gnosticist of flow into one of the anterior temporal branches. There was severe vaso spasm in the region of the tip of the guide catheter, essentially flow occlusive. For this reason, th e patient was given 2.5 mg intra-arterial verapamil and was given 2500 units of heparin. The clot ext raction process was repeated and follow up again performed with no change in the angiographic appeara nce. A third pass was accomplished. This time, follow-up angiography demonstrates gnosticist of flow with TICI grade 3 flow. Completion arteriography was accomplished over the head and the carotid appe ared normal with complete resolution of the previously noted vasospasm. No carotid bifurcation stenos is or disease was identified. The guide catheter was removed. Hemostasis was obtained with the Angio-Seal closure device. CONCLUSION: Successful stroke salvage thromboembolectomy for right middle cerebral artery occlusion as described in detail above. Electronically signed by: Jose Layne MD 09/06/2018 9:49 AM EST
[2018-09-06 12:57] LABS: Chol/HDL Ratio 2.97 Ratio; HDL Cholesterol 47.4 mg/dL (40.0-60.0)
--- NOTE | 2018-09-06 16:45 | P.CONNEU ---
History of Present Illness Service: Neurology Primary Care Provider: UNKNOWN Chief Complaint: Stroke History of Present Illness: 53-year-old female admitted for stroke symptoms. Had left hemiplegia out of the IV TPA window ER discussed with neurologist on-call. Sent for CTA brain carotids which demonstrated right MCA occlusion. Underwent neuro intervention with clot extraction. Subsequently placed the intensive care unit. Patient complains of mild right hemicranial headache denies any previous history of TIA stroke A. fib or any clotting disorder. Admits to moderate stress at work. 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 - Medical History Medical History: Medical History (Last Reviewed 09/06/18 @ 08:58 by Ron Cueva) Diabetes Hypertension - Tobacco History Smoking Status: Former smoker - Alcohol History How Often Do You Have a Drink Containing Alcohol: Monthly or less - Substance Use History Substance History: Active Abuse - Travel History Recent Travel in the [facility] Within the Last 8 Weeks: No Recent Travel Out of the Country Within the Last 8 Weeks: No - Immunization History Tetanus Immunization: Unsure Medications and Allergies Active Medications: Active Medications Acetaminophen (Tylenol) 650 mg PO Q6H PRN PRN Reason: PAIN 1-10 AND/OR FEVER >101F Al Hydroxide/Mg Hydroxide (Milk Of Consuelo Lijosh) 30 ml PO Q12H PRN PRN Reason: Mild Constipation Albuterol (Duoneb Neb (Prn)) 1 ampul NEB Q2HR NEB PRN PRN Reason: WHEEZING Bisacodyl (Dulcolax Supp) 10 mg RECTAL DAILY PRN PRN Reason: SEVERE CONSITIPATION Chlorhexidine Gluconate (Chlorhexidine 2% Cloth) 3 pack TOPICAL DAILY@0400 ROSALINA Stop: 09/11/18 03:59 Last Admin: 09/06/18 08:17 Dose: Not Given Chlorhexidine Gluconate (Chlorhexidine 2% Cloth) 3 pack TOPICAL DAILY@0400 PRN PRN Reason: Extra cloth needed Stop: 09/11/18 03:59 Dextrose (D50w Vial) 50 ml IV.PUSH UNSCH PRN PRN Reason: PER HYPOGLYCEMIA PROTOCOL Famotidine (Pepcid Pf Inj) 20 mg IV.PUSH Q12HR ROSALINA Last Admin: 09/06/18 08:23 Dose: 20 mg Glucagon (Glucagon Inj) 1 mg OTHER PRN PRN PRN Reason: for Hypoglycemia Protocol Heparin Sodium (Porcine) (Heparin Inj) 5,000 units SQ Q8H ROSALINA Sodium Chloride (Ns Inj) 1,000 mls @ 70 mls/hr IV.CONT .[id number] [facility] Last Admin: 09/06/18 05:48 Dose: 70 mls/hr Magnesium Sulfate 4 gm/ Sodium (Chloride) 100 mls @ 50 mls/hr IV.SIG UNSCH PRN PRN Reason: For Magnesium 0.9 - 1.1 mg/dL Magnesium Sulfate 2 gm/ Sodium (Chloride) 100 mls @ 50 mls/hr IV.SIG UNSCH PRN PRN Reason: For Magnesium 1.2 - 1.6 mg/dL Potassium Chloride (Kcl 40 Meq Premix Inj) 40 meq in 100 mls @ 50 mls/hr IV.SIG Q2H PRN PRN Reason: For Potassium 2.8 - 3.2 mEq/L Potassium Chloride (Kcl 20 Meq Premix Inj) 20 meq in 100 mls @ 50 mls/hr IV.SIG Q2H PRN PRN Reason: For Potassium 3.3 - 3.5 mEq/L Potassium Chloride (Kcl 40 Meq Premix Inj) 40 meq in 100 mls @ 25 mls/hr IV.SIG UNSCH PRN PRN Reason: For Potassium 3.3 - 3.5 mEq/L Potassium Chloride (Kcl 20 Meq Premix Inj) 20 meq in 100 mls @ 50 mls/hr IV.SIG Q2H PRN PRN Reason: For Potassium 2.8 - 3.2 mEq/L Potassium Phosphate 30 mmol/ (Sodium Chloride) 260 mls @ 42 mls/hr IV.SIG UNSCH PRN PRN Reason: SEE LABEL COMMENTS Sodium Phosphate 30 mmol/ (Sodium Chloride) 260 mls @ 42 mls/hr IV.SIG UNSCH PRN PRN Reason: For Phosphorus < 2.5 mg/dL Insulin Human Regular (Novolin R Correctional Sugar Inj) 0 units SQ Q6HR [facility]; Protocol Lactulose (Lactulose Liq) 30 ml PO DAILY PRN PRN Reason: SEVERE CONSITIPATION Magnesium Oxide (Mag-Ox) 800 mg PO UNSCH PRN PRN Reason: For Magnesium 1.2 - 1.6 mg/dL Miscellaneous Information ([facility] [facility] 0 each OTHER UNSCH PRN PRN Reason: SEE LABEL COMMENTS Stop: 09/07/18 06:16 Morphine Sulfate (Morphine Inj) 2 mg IV.PUSH Q2H PRN PRN Reason: PAIN SCALE 6 TO 10 Ondansetron HCl (Zofran Inj) 4 mg IV.PUSH Q6H PRN PRN Reason: NAUSEA OR VOMITING Potassium Bicarb/Potassium Chloride (K-Lyte Cl Eff) 50 meq PO UNSCH PRN PRN Reason: For Potassium 3.3 - 3.5 mEq/L Potassium Phosphate (K-Phos Original) 2,000 mg PO Q4H PRN PRN Reason: Phosphorus Less Than 2.5 mg/dL Potassium Phosphate (K-Phos Original) 2,000 mg PO UNSCH PRN PRN Reason: SEE LABEL COMMENTS Senna/Docusate Sodium (Emma-Colace) 1 tab PO BID [facility] Last Admin: 09/06/18 08:17 Dose: Not Given Sennosides (Senokot) 17.2 mg PO Q12H PRN PRN Reason: Moderate Constipation Sodium Chloride (Ns Flush) 2 ml IV.FLUSH BID [facility] Last Admin: 09/06/18 08:23 Dose: 2 ml Sodium Chloride (Ns Flush) 2 ml IV.FLUSH PRN PRN PRN Reason: FLUSH AFTER USING IV ACCESS Allergies Allergy/AdvReac Type Severity Reaction Status Date / Time loratadine [From Claritin] Allergy unknown Verified 09/06/18 01:20 Home Medications Medication Instructions Recorded Confirmed Type amlodipine 10 mg PO DAILY 09/06/18 09/06/18 History amlodipine 10 mg PO DAILY 09/06/18 09/06/18 History amoxicillin 500 mg PO TID 09/06/18 09/06/18 History hydrocodone-acetaminophen 2 tab PO Q6H PRN 09/06/18 09/06/18 History ibuprofen 600 mg PO QID PRN 09/06/18 09/06/18 History ibuprofen 800 mg PO QID PRN 09/06/18 09/06/18 History metoprolol tartrate 25 mg PO BID 09/06/18 09/06/18 History naproxen 500 mg PO BID 09/06/18 09/06/18 History Exam Vital signs: Vital Signs 09/06/18 01:08 09/06/18 01:26 09/06/18 01:36 Temperature 98.6 F Pulse Rate 106 H 98 H Respiratory Rate 14 14 Blood Pressure 157/98 H 152/94 H Pulse Oximetry 90 L 94 L 94 L 09/06/18 02:26 09/06/18 02:32 09/06/18 03:00 Temperature Pulse Rate 104 H 103 H 110 H Respiratory Rate 35 H 20 24 Blood Pressure 149/86 H 157/54 H Pulse Oximetry 96 95 95 09/06/18 05:15 09/06/18 05:25 09/06/18 05:30 Temperature 97.8 F 97.7 F 97.8 F Pulse Rate 101 H 106 H 101 H Respiratory Rate 16 14 11 L Blood Pressure 125/78 125/78 136/89 Pulse Oximetry 92 L 92 L 92 L 09/06/18 05:45 09/06/18 06:00 09/06/18 06:43 Temperature 97.8 F 97.7 F Pulse Rate 100 H 101 H Respiratory Rate 18 14 Blood Pressure 127/79 127/80 Pulse Oximetry 94 L 93 L 93 L 09/06/18 06:52 09/06/18 07:00 09/06/18 07:04 Temperature 97.8 F Pulse Rate 101 H 102 H 100 H Respiratory Rate 18 26 H 23 Blood Pressure 136/84 132/80 Pulse Oximetry 99 100 100 09/06/18 07:15 09/06/18 07:19 09/06/18 07:30 Temperature Pulse Rate 101 H 100 H 99 H Respiratory Rate 22 26 H 22 Blood Pressure 134/87 Pulse Oximetry 100 99 99 09/06/18 07:34 09/06/18 07:45 09/06/18 07:49 Temperature Pulse Rate 101 H 100 H 100 H Respiratory Rate 20 23 22 Blood Pressure 133/83 129/85 Pulse Oximetry 100 100 100 09/06/18 08:00 09/06/18 08:04 09/06/18 08:15 Temperature Pulse Rate 97 H 99 H 99 H Respiratory Rate 17 23 21 Blood Pressure 130/84 Pulse Oximetry 93 L 100 99 09/06/18 08:19 09/06/18 08:30 09/06/18 08:34 Temperature 98.2 F Pulse Rate 101 H 100 H 98 H Respiratory Rate 20 27 H 20 Blood Pressure 122/85 125/82 Pulse Oximetry 98 98 99 09/06/18 08:45 09/06/18 08:49 09/06/18 09:00 Temperature Pulse Rate 98 H 97 H 99 H Respiratory Rate 16 20 36 H Blood Pressure 123/81 123/81 Pulse Oximetry 100 100 100 09/06/18 09:04 09/06/18 09:15 09/06/18 09:19 Temperature Pulse Rate 112 H 100 H 99 H Respiratory Rate 33 H 27 H 21 Blood Pressure 174/108 H 120/76 Pulse Oximetry 100 100 100 09/06/18 09:30 09/06/18 09:34 09/06/18 09:45 Temperature Pulse Rate 99 H 99 H 95 H Respiratory Rate 24 23 22 Blood Pressure 119/80 Pulse Oximetry 99 100 97 09/06/18 09:49 09/06/18 10:00 09/06/18 10:04 Temperature Pulse Rate 94 H 95 H 96 H Respiratory Rate 20 23 24 Blood Pressure 123/79 132/79 Pulse Oximetry 99 99 99 09/06/18 10:15 09/06/18 10:19 09/06/18 10:30 Temperature Pulse Rate 111 H 99 H 90 Respiratory Rate 32 H 22 22 Blood Pressure 123/79 Pulse Oximetry 98 97 99 09/06/18 10:34 09/06/18 10:45 09/06/18 10:49 Temperature Pulse Rate 93 H 110 H 109 H Respiratory Rate 22 33 H 26 H Blood Pressure 121/79 139/87 Pulse Oximetry 98 99 99 09/06/18 11:00 09/06/18 11:04 09/06/18 11:15 Temperature Pulse Rate 98 H 99 H 94 H Respiratory Rate 21 28 H 13 Blood Pressure 126/82 Pulse Oximetry 98 98 98 09/06/18 11:19 09/06/18 11:30 09/06/18 11:45 Temperature Pulse Rate 95 H 92 H 92 H Respiratory Rate 18 21 23 Blood Pressure 130/86 Pulse Oximetry 99 99 99 09/06/18 11:49 09/06/18 12:00 09/06/18 12:14 Temperature Pulse Rate 94 H 94 H 96 H Respiratory Rate 26 H 24 32 H Blood Pressure 136/85 118/79 Pulse Oximetry 99 99 98 09/06/18 12:15 09/06/18 12:16 09/06/18 12:30 Temperature Pulse Rate 96 H 95 H Respiratory Rate 26 H 22 Blood Pressure 129/83 Pulse Oximetry 98 99 98 09/06/18 12:45 09/06/18 13:00 09/06/18 13:15 Temperature Pulse Rate 95 H 100 H 94 H Respiratory Rate 26 H 25 H 26 H Blood Pressure 132/85 130/83 132/84 Pulse Oximetry 98 97 97 09/06/18 13:30 09/06/18 13:45 09/06/18 14:00 Temperature Pulse Rate 93 H 93 H 93 H Respiratory Rate 17 29 H 27 H Blood Pressure 133/87 131/89 137/80 Pulse Oximetry 96 97 98 09/06/18 14:15 09/06/18 14:30 09/06/18 14:45 Temperature Pulse Rate 118 H 92 H 90 Respiratory Rate 43 H 20 25 H Blood Pressure 154/95 H 131/85 128/80 Pulse Oximetry 97 97 96 09/06/18 15:00 09/06/18 15:14 09/06/18 15:15 Temperature Pulse Rate 85 93 H Respiratory Rate 24 25 H Blood Pressure 136/81 131/80 Pulse Oximetry 98 97 97 09/06/18 15:30 09/06/18 15:45 09/06/18 16:00 Temperature 98.2 F Pulse Rate 108 H 98 H 94 H Respiratory Rate 29 H 44 H 20 Blood Pressure 146/83 H 137/73 124/78 Pulse Oximetry 96 96 99 09/06/18 16:15 Temperature Pulse Rate 90 Respiratory Rate 21 Blood Pressure 124/81 Pulse Oximetry 98 Intake & Output 09/05/18 09/06/18 09/06/18 18:59 06:59 18:59 Weight 128.4 kg Other: Weight On Admission 128.4 kg Narrative: GENERAL: in NAD, SKIN: Warm and dry. HEAD: Atraumatic. Normocephalic. EYES: Pupils equal and round. No scleral icterus. ENT: No nasal bleeding or discharge. Mucous membranes pink and moist. NECK: Trachea midline. No JVD. CARDIOVASCULAR: Regular rate and rhythm. RESPIRATORY: No accessory muscle use. GASTROINTESTINAL: Abdomen soft, non-tender, nondistended. MUSCULOSKELETAL: Extremities without clubbing, cyanosis, or edema. NEUROLOGICAL: Awake alert oriented x3, reduced left nasolabial fold, mildly dysarthric speech, left ataxic hemiparesis left upper extremity 3-4 out of 5, left lower extremity 2 out of 5 difficulty raising off the bed, no obvious neglect gait not assessed secondary fall risk PSYCHIATRIC: Appropriate mood and affect - Constitutional no acute distress - Routine HEENT Exam Head: Present: normocephalic Eye: Present: EOMI Results - Labs CBC & Chem 7: 09/06/18 01:20 Labs: Laboratory Results - last 24 hr 09/06/18 09/06/18 09/06/18 01:10 01:14 01:20 WBC 6.6 RBC 4.51 Hgb 13.4 POC Hgb (Calc) 13.3 Hct 39.6 POC Hct 39.0 MCV 87.7 MCH 29.6 MCHC 33.8 RDW 15.0 Plt Count 189 MPV 8.9 Neut % (Auto) 70.1 H Lymph % (Auto) 23.7 [place] % (Auto) 4.8 Eos % (Auto) 0.4 Baso % (Auto) 1.0 Neut # (Auto) 4.7 Lymph # (Auto) 1.6 [place] # (Auto) 0.3 Eos # (Auto) 0.0 Baso # (Auto) 0.1 WBC Differential . Differential Comment Auto diff final PT 9.7 L INR 1.0 APTT 23.0 L Fibrinogen 348 POC Sodium 143 POC Potassium 3.7 POC Chloride 109 POC BUN 18 POC Creatinine 1.2 POC Glucose 145 H Total Creatine Kinase 107 Troponin I Less than 0.02 L Triglycerides Cholesterol LDL Cholesterol, Calc HDL Cholesterol Cholesterol/HDL Ratio Beta HCG, Quant 1 Urine Color Urine Clarity Urine pH Ur Specific [place] Urine Protein Urine Glucose (UA) Urine Ketones Urine Occult Blood Urine Nitrate Urine Bilirubin Urine Urobilinogen Ur Leukocyte Esterase Urine RBC Urine WBC Ur Squamous Epith Cells Urine Mucus Micro UA Comment Ur Microscopic Review Urine Culture Comments Nasal Screen MRSA (PCR) Urine Opiates Screen Ur Barbiturates Screen Ur Amphetamines Screen U Benzodiazepines Scrn Urine Cocaine Screen U Cannabinoids Screen Blood Type Blood Type Recheck Antibody Screen 09/06/18 09/06/18 09/06/18 01:20 02:20 02:20 WBC RBC Hgb POC Hgb (Calc) Hct POC Hct MCV MCH MCHC RDW Plt Count MPV Neut % (Auto) Lymph % (Auto) [place] % (Auto) Eos % (Auto) Baso % (Auto) Neut # (Auto) Lymph # (Auto) [place] # (Auto) Eos # (Auto) Baso # (Auto) WBC Differential Differential Comment PT INR APTT Fibrinogen POC Sodium POC Potassium POC Chloride POC BUN POC Creatinine POC Glucose Total Creatine Kinase Troponin I Triglycerides Cholesterol LDL Cholesterol, Calc HDL Cholesterol Cholesterol/HDL Ratio Beta HCG, Quant Urine Color Yellow Urine Clarity Clear Urine pH 5.0 Ur Specific [place] 1.033 Urine Protein Negative Urine Glucose (UA) Negative Urine Ketones Trace H Urine Occult Blood Negative Urine Nitrate Negative Urine Bilirubin Negative Urine Urobilinogen Less than 2 Ur Leukocyte Esterase Negative Urine RBC 1 Urine WBC 1 Ur Squamous Epith Cells 1 Urine Mucus Few H Micro UA Comment Cath-culture not ind Ur Microscopic Review Not Reportable Urine Culture Comments Cath-cult not ind Nasal Screen MRSA (PCR) Urine Opiates Screen Neg Ur Barbiturates Screen Neg Ur Amphetamines Screen Neg U Benzodiazepines Scrn Neg Urine Cocaine Screen Neg U Cannabinoids Screen Pos H Blood Type O Positive Blood Type Recheck Required Antibody Screen Negative 09/06/18 09/06/18 09/06/18 05:41 06:40 08:23 WBC RBC Hgb POC Hgb (Calc) Hct POC Hct MCV MCH MCHC RDW Plt Count MPV Neut % (Auto) Lymph % (Auto) [place] % (Auto) Eos % (Auto) Baso % (Auto) Neut # (Auto) Lymph # (Auto) [place] # (Auto) Eos # (Auto) Baso # (Auto) WBC Differential Differential Comment PT INR APTT Fibrinogen POC Sodium POC Potassium POC Chloride POC BUN POC Creatinine POC Glucose 147 H Total Creatine Kinase Troponin I Triglycerides Cholesterol LDL Cholesterol, Calc HDL Cholesterol Cholesterol/HDL Ratio Beta HCG, Quant Urine Color Urine Clarity Urine pH Ur Specific [place] Urine Protein Urine Glucose (UA) Urine Ketones Urine Occult Blood Urine Nitrate Urine Bilirubin Urine Urobilinogen Ur Leukocyte Esterase Urine RBC Urine WBC Ur Squamous Epith Cells Urine Mucus Micro UA Comment Ur Microscopic Review Urine Culture Comments Nasal Screen MRSA (PCR) Not detected Not detected Urine Opiates Screen Ur Barbiturates Screen Ur Amphetamines Screen U Benzodiazepines Scrn Urine Cocaine Screen U Cannabinoids Screen Blood Type Blood Type Recheck Antibody Screen 09/06/18 09/06/18 12:16 12:29 WBC RBC Hgb POC Hgb (Calc) Hct POC Hct MCV MCH MCHC RDW Plt Count MPV Neut % (Auto) Lymph % (Auto) [place] % (Auto) Eos % (Auto) Baso % (Auto) Neut # (Auto) Lymph # (Auto) [place] # (Auto) Eos # (Auto) Baso # (Auto) WBC Differential Differential Comment PT INR APTT Fibrinogen POC Sodium POC Potassium POC Chloride POC BUN POC Creatinine POC Glucose 102 Total Creatine Kinase Troponin I Triglycerides 86 Cholesterol 141 LDL Cholesterol, Calc 76 HDL Cholesterol 47.4 Cholesterol/HDL Ratio 2.97 Beta HCG, Quant Urine Color Urine Clarity Urine pH Ur Specific [place] Urine Protein Urine Glucose (UA) Urine Ketones Urine Occult Blood Urine Nitrate Urine Bilirubin Urine Urobilinogen Ur Leukocyte Esterase Urine RBC Urine WBC Ur Squamous Epith Cells Urine Mucus Micro UA Comment Ur Microscopic Review Urine Culture Comments Nasal Screen MRSA (PCR) Urine Opiates Screen Ur Barbiturates Screen Ur Amphetamines Screen U Benzodiazepines Scrn Urine Cocaine Screen U Cannabinoids Screen Blood Type Blood Type Recheck Antibody Screen - Imaging Impressions Cerebral Angiography 09/06/18 00:00 CONCLUSION: Successful stroke salvage thromboembolectomy for right middle cerebral artery occlusion as described in detail above. Chest X-Ray 09/06/18 01:14 CONCLUSION: Moderate cardiomegaly with no evidence of pulmonary edema. Head CTA 09/06/18 01:14 CONCLUSION: 1. Occlusion of the right middle cerebral artery in the distal M1 segment. Report was called by [Dr. Woods to Dr. So at 0210 hours. ] Neck CTA 09/06/18 01:14 CONCLUSION: 1. Suboptimal opacification. 2. 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 3. No significant stenosis in the common carotid or internal carotid arteries. CT CAD 09/06/18 01:15 CONCLUSION: Physiological brain perfusion parameters with RAPID analysis as above. The decision for consideration of therapy is multi factorial and multi disciplinary relying on subjective and objective clinical data. This data is not construed or intended to be the sole determinant of treatment eligibility. Head CT 09/06/18 01:20 CONCLUSION: 1. Negative noncontrast head CT. Report was called by [Dr Woods to Dr. Quesada at 0132 hours. ] Review/Management - Diagnosis (1) Acute right MCA stroke Code(s): I63.511 - Cerebral infarction due to unspecified occlusion or stenosis of right middle cerebral artery Status: Acute Current Visit: Yes (2) Hypertension Code(s): I10 - Essential (primary) hypertension Status: Acute Current Visit : Yes - Review/Management Plan: Right MCA stroke, status post successful right MCA thromboembolectomy Significant improvement in left-sided strength Etiology of stroke? Possibly cardioembolic check ejection fraction, rule out atrial fibrillation Recommendation Follow-up echo MRI MRA of the brain Cardiology evaluation for possible MITA, loop recorder reviewing echo Follow-up lipids, HbA1c Follow exam Discussed with NATHAN
[2018-09-06] MEDS: Insulin NovoLIN Regular Correctional Sugar Inj SQ SCH ×3 (16:50→23:34)
[2018-09-06] MEDS: Morphine Sulfate Inj 2 MG/ML Vial IV.PUSH PRN (17:50)
--- NOTE | 2018-09-06 18:02 | ECG ---
Date Performed: 09/06/2018 Time Performed: 01:55:07 PTAGE: 53 years EKG: SINUS TACHYCARDIA WITH OCCASIONAL VENTRICULAR PREMATURE COMPLEXES POSSIBLE LEFT ATRIAL ENLA RGEMENT LEFT VENTRICULAR HYPERTROPHY AND ST-T CHANGE ABNORMAL ECG Compared to PREVIOUS TRACING , the patient is now tachycardic with PVCs. PREVIOUS TRACIN07/25/1999 16.47 DOCTOR: Adelita Goncalves Interpretating Date/Time 09/06/2018 18:01:04
[2018-09-06 18:04] LABS: Hemoglobin A1c 5.8 % (4.3-6.0)
--- NOTE | 2018-09-06 21:20 | ECHRPT ---
Indication: cva CONCLUSIONS Moderately dilated left ventricle. Wall thickness is normal. The left ventricular systolic function is severely reduced with an estimated ejection fraction in th e range of 25%. Global hypokinesis. The left atrial size is mildly dilated. Mild mitral valve regurgitation. The estimated pulmonary arterial pressure is 26 mmHg. There is mild tricuspid valve regurgitation. BP: / HR: Rhythm: MEASUREMENTS (Male / Female) Normal Values Technical Quality: 2D ECHO LV Diastolic Diameter PLAX 6.8 cm 4.2 - 5.9 / 3.9 - 5.3 cm LV Systolic Diameter PLAX 6.4 cm IVS Diastolic Thickness 1.0 cm 0.6 - 1.0 / 0.6 - 0.9 cm LVPW Diastolic Thickness 1.1 cm 0.6 - 1.0 / 0.6 - 0.9 cm LV Relative Wall Thickness 0.3 RV Internal Dim ED PLAX 1.8 cm LVOT Diameter 1.8 cm Aortic Root Diameter 2.8 cm LA Systolic Diameter LX 4.1 cm 3.0 - 4.0 / 2.7 - 3.8 cm LV Ejection Fraction MOD BP 28.0 % >= 55 % LV Ejection Fraction MOD 4C 28.3 % LV Ejection Fraction 4C AL 31.1 % LV Ejection Fraction MOD 2C 26.7 % LV Ejection Fraction 2C AL 26.3 % M-MODE Aortic Root Diameter MM 3.6 cm LA Systolic Diameter MM 5.0 cm LA Ao Ratio MM 1.4 AV Cusp Separation MM 2.0 cm DOPPLER AV Peak Velocity 138.0 cm/s AV Peak Gradient 7.6 mmHg LVOT Peak Velocity 83.4 cm/s LVOT Peak Gradient 2.8 mmHg AV Area Cont Eq pk 1.5 cm Mitral E Point Velocity 103.0 cm/s Mitral A Point Velocity 77.0 cm/s Mitral E to A Ratio 1.3 LV E' Lateral Velocity 9.7 cm/s Mitral E to LV E' Lateral Ratio 10.7 LV E' Septal Velocity 3.8 cm/s Mitral E to LV E' Septal Ratio 27.1 TR Peak Velocity 199.0 cm/s TR Peak Gradient 15.8 mmHg Right Atrial Pressure 10.0 mmHg Pulmonary Artery Systolic Pressu 25.8 mmHg Right Ventricular Systolic Press 25.8 mmHg PV Peak Velocity 94.8 cm/s PV Peak Gradient 3.6 mmHg FINDINGS LEFT VENTRICLE Moderately dilated left ventricle. Wall thickness is normal. The left ventricular systolic function is severely reduced with an estimated ejection fraction in th e range of 25%. Global hypokinesis. RIGHT VENTRICLE Normal right ventricular size and systolic function. LEFT ATRIUM The left atrial size is mildly dilated. RIGHT ATRIUM The right atrial size is normal. ATRIAL SEPTUM Normal atrial septal thickness without atrial level shunting by limited color doppler interrogation. AORTA The aortic root and proximal ascending aorta are normal in size on limited imaging. MITRAL VALVE Mild thickening of the mitral valve leaflets. Mild mitral valve regurgitation. AORTIC VALVE Trileaflet aortic valve. No aortic valve stenosis or regurgitation. TRICUSPID VALVE The estimated pulmonary arterial pressure is 26 mmHg. There is mild tricuspid valve regurgitation. PULMONARY VALVE Mild pulmonary valve regurgitation. VESSELS The inferior vena cava is normal in size. PERICARDIUM No pericardial effusion. Tad Arana MD (Electronically Signed) Final Date:06 September 2018 21:19
--- NOTE | 2018-09-06 21:30 | MR ---
EXAM DATE: 09/06/2018 9:26 PM EST AGE/SEX: 53 years / Female INDICATIONS: CVA. Left upper side weakness. CLINICAL DATA: This is the patient's initial encounter. Patient reports that signs and symptoms have been present for 1 day and indicates a pain score of 5/10. MEDICAL/SURGICAL HISTORY: Hypertension. Cholecystectomy. COMPARISON: [facility] [place], MR HEAD W/O CONTRAST, 09/06/2018. . TECHNIQUE: 3D [id number] MRA was performed. Source images, multiplanar STS MIP, and 3D volum e MIP reconstructions were reviewed. FINDINGS: There is excellent visualization of the major intracranial arteries out to the second-order branch ve ssels. Variant anatomy with persistent circulation bilaterally. No filling defects. There is no evidence for aneurysm, vessel truncation or stenosis, and no evidence for vascular malformation. CONCLUSION: 1. Negative MRA Cow ([place]) non contrast. Electronically signed by: Antonio Bowers MD 09/06/2018 9:29 PM EST
--- NOTE | 2018-09-06 21:33 | MR ---
EXAM DATE: 09/06/2018 9:25 PM EST AGE/SEX: 53 years / Female INDICATIONS: CVA. Left upper side weakness. CLINICAL DATA: This is the patient's initial encounter. Patient reports that signs and symptoms have been present for 1 day and indicates a pain score of 6/10. MEDICAL/SURGICAL HISTORY: Hypertension. Cholecystectomy. COMPARISON: C, MRA HEAD W/O CONTRAST, 09/06/2018. C, ANGIOGRAM, CEREBRAL STROKE, 09/06/2018 . C, CT CEREBRAL PERF W CONTRAST W 3D, 09/06/2018. [facility], CTA HEAD W CONTRAST W 3D, 09/06/2018. C, CT HEAD W/O CONTRAST, 09/06/2018. . TECHNIQUE: Multiplanar, multisequence examination of the brain was performed without contrast. FINDINGS: The patient underwent right middle cerebral artery thrombembolectomy earlier today. There is restrict ed diffusion in the right MCA distribution involving the suprasylvian parietal lobe, rangel radiata, and focal areas of restricted diffusion in the posterior right parietal watershed zone. No evidence o f mass effect, ventricular effacement, or midline shift. No extra-axial fluid or blood. On the gradie nt echo images, no evidence of acute blood products. The posterior fossa structures are grossly intac t. CONCLUSION: 1. Acute infarction right middle cerebral artery distribution post thrombectomy without evidence of acute blood products or cerebral edema. Electronically signed by: Antonio Bernard MD 09/06/2018 9:32 PM EST
[2018-09-07] MEDS: Acetaminophen 325 MG Tablet PO PRN ×3 (02:19→20:36)
[2018-09-07] MEDS: Heparin - SQ 10,000 UNITS/ML Vial SQ SCH ×3 (03:17→20:37)
[2018-09-07] MEDS: Chlorhexidine Gluconate 2% 1 Pack (2 Cloths) TOPICAL SCH (03:18)
[2018-09-07 04:33] LABS: Baso % (Auto) 0.3 % (0.0-2.0); Eos % (Auto) 0.3 % (0.0-4.0); Hematocrit 34.2 % (35.0-46.0); Hemoglobin 11.6 gm/dL (11.6-15.3); Lymph # (Auto) 1.9 th/mm3 (1.0-4.8); Lymph % (Auto) 36.3 % (9.0-44.0); Mean Corpuscular HGB Conc 33.9 % (32.0-36.0); Mean Corpuscular Hemoglobin 29.7 pg (27.0-34.0); Mean Corpuscular Volume 87.8 fL (80.0-100.0); Mean Platelet Volume 8.1 fL (7.0-11.0); Mono # (Auto) 0.3 th/mm3 (0.0-0.9); Mono % (Auto) 5.9 % (0.0-8.0); Neut % (Auto) 57.2 % (16.0-70.0); Platelet Count 162 th/mm3 (150-450); Red Cell Distribution Width 14.9 % (11.6-17.2); White Blood Count 5.2 th/mm3 (4.0-11.0)
[2018-09-07 04:42] LABS: Activated Partial Thrombo Time 26.1 sec (23.4-31.7); Prothrombin Time 10.4 sec (9.8-11.6)
[2018-09-07 04:57] LABS: Albumin 3.1 g/dL (3.4-5.0); Anion Gap 8 meq/L (5-15); Aspartate Aminotransferase 19 U/L (15-37); Blood Urea Nitrogen 9 mg/dL (7-18); Carbon Dioxide 22.1 meq/L (21.0-32.0); Chloride 114 meq/L (98-107); Glomerular Filtration Rate 80 mL/min (>89); Glucose,Random 115 mg/dL (74-106); Magnesium 1.8 mg/dL (1.5-2.5); Potassium 3.6 meq/L (3.5-5.1); Sodium 144 meq/L (136-145)
[2018-09-07 04:59] LABS: Alanine Aminotransferase 30 U/L (10-53); Phosphorus 2.1 mg/dL (2.5-4.9)
[2018-09-07 05:01] LABS: Alkaline Phosphatase 53 U/L (45-117); Total Protein 6.5 g/dL (6.4-8.2)
[2018-09-07] MEDS: Morphine Sulfate Inj 2 MG/ML Vial IV.PUSH PRN (06:11)
--- NOTE | 2018-09-07 07:02 | P.PNCC ---
Subjective Subjective Remarks/Hospital Course: 53 year old female presents with a history of calling her friend regarding of severe headache sometime prior to arrival. According to ambulance services the patient was last seen normal sometime between 8 and 9 PM. Upon the friends arrival the patient was assisted out of bed and fell to the ground. The patient had flaccid weakness of the left upper and left lower extremity noted. The patient had a left-sided facial droop and slurred speech. Stroke alert was called prior to arrival. The patient reports having a headache on the right side of her head over the christianity. The patient had one episode of vomiting prior to arrival. The patient denies any prior history of stroke. The patient does have a prior history of hypertension and diabetes mellitus. She denies any prior history of cardiac arrhythmia. On review of systems otherwise, the patient denies having any known recent fevers, cough, congestion, neck pain, chest pain, shortness of breath, abdominal pain, diarrhea, or urinary symptoms. 09/06: Status post thrombectomy by IR, no TPA administration, significantly improved neurologic examination. Still remaining some mild weakness on the left upper extremity. 09/07: Protects airway, alert. Left arm 4/5. Thickened liquids ordered. Anticoagulation? Objective Vital Signs / I&O: Vital Signs 09/06/18 07:00 09/06/18 07:04 09/06/18 07:15 Temperature Pulse Rate 102 H 100 H 101 H Respiratory Rate 26 H 23 22 Blood Pressure 132/80 Pulse Oximetry 100 100 100 09/06/18 07:19 09/06/18 07:30 09/06/18 07:34 Temperature Pulse Rate 100 H 99 H 101 H Respiratory Rate 26 H 22 20 Blood Pressure 134/87 133/83 Pulse Oximetry 99 99 100 09/06/18 07:45 09/06/18 07:49 09/06/18 08:00 Temperature Pulse Rate 100 H 100 H 97 H Respiratory Rate 23 22 17 Blood Pressure 129/85 Pulse Oximetry 100 100 93 L 09/06/18 08:04 09/06/18 08:15 09/06/18 08:19 Temperature 98.2 F Pulse Rate 99 H 99 H 101 H Respiratory Rate 23 21 20 Blood Pressure 130/84 122/85 Pulse Oximetry 100 99 98 09/06/18 08:30 09/06/18 08:34 09/06/18 08:45 Temperature Pulse Rate 100 H 98 H 98 H Respiratory Rate 27 H 20 16 Blood Pressure 125/82 Pulse Oximetry 98 99 100 09/06/18 08:49 09/06/18 09:00 09/06/18 09:04 Temperature Pulse Rate 97 H 99 H 112 H Respiratory Rate 20 36 H 33 H Blood Pressure 123/81 123/81 174/108 H Pulse Oximetry 100 100 100 09/06/18 09:15 09/06/18 09:19 09/06/18 09:30 Temperature Pulse Rate 100 H 99 H 99 H Respiratory Rate 27 H 21 24 Blood Pressure 120/76 Pulse Oximetry 100 100 99 09/06/18 09:34 09/06/18 09:45 09/06/18 09:49 Temperature Pulse Rate 99 H 95 H 94 H Respiratory Rate 23 22 20 Blood Pressure 119/80 123/79 Pulse Oximetry 100 97 99 09/06/18 10:00 09/06/18 10:04 09/06/18 10:15 Temperature Pulse Rate 95 H 96 H 111 H Respiratory Rate 23 24 32 H Blood Pressure 132/79 Pulse Oximetry 99 99 98 09/06/18 10:19 09/06/18 10:30 09/06/18 10:34 Temperature Pulse Rate 99 H 90 93 H Respiratory Rate 22 22 22 Blood Pressure 123/79 121/79 Pulse Oximetry 97 99 98 09/06/18 10:45 09/06/18 10:49 09/06/18 11:00 Temperature Pulse Rate 110 H 109 H 98 H Respiratory Rate 33 H 26 H 21 Blood Pressure 139/87 Pulse Oximetry 99 99 98 09/06/18 11:04 09/06/18 11:15 09/06/18 11:19 Temperature Pulse Rate 99 H 94 H 95 H Respiratory Rate 28 H 13 18 Blood Pressure 126/82 130/86 Pulse Oximetry 98 98 99 09/06/18 11:30 09/06/18 11:45 09/06/18 11:49 Temperature Pulse Rate 92 H 92 H 94 H Respiratory Rate 21 23 26 H Blood Pressure 136/85 Pulse Oximetry 99 99 99 09/06/18 12:00 09/06/18 12:14 09/06/18 12:15 Temperature Pulse Rate 94 H 96 H 96 H Respiratory Rate 24 32 H 26 H Blood Pressure 118/79 Pulse Oximetry 99 98 98 09/06/18 12:16 09/06/18 12:30 09/06/18 12:45 Temperature Pulse Rate 95 H 95 H Respiratory Rate 22 26 H Blood Pressure 129/83 132/85 Pulse Oximetry 99 98 98 09/06/18 13:00 09/06/18 13:15 09/06/18 13:30 Temperature Pulse Rate 100 H 94 H 93 H Respiratory Rate 25 H 26 H 17 Blood Pressure 130/83 132/84 133/87 Pulse Oximetry 97 97 96 09/06/18 13:45 09/06/18 14:00 09/06/18 14:15 Temperature Pulse Rate 93 H 93 H 118 H Respiratory Rate 29 H 27 H 43 H Blood Pressure 131/89 137/80 154/95 H Pulse Oximetry 97 98 97 09/06/18 14:30 09/06/18 14:45 09/06/18 15:00 Temperature Pulse Rate 92 H 90 85 Respiratory Rate 20 25 H 24 Blood Pressure 131/85 128/80 136/81 Pulse Oximetry 97 96 98 09/06/18 15:14 09/06/18 15:15 09/06/18 15:30 Temperature Pulse Rate 93 H 108 H Respiratory Rate 25 H 29 H Blood Pressure 131/80 146/83 H Pulse Oximetry 97 97 96 09/06/18 15:45 09/06/18 16:00 09/06/18 16:15 Temperature 98.2 F Pulse Rate 98 H 94 H 90 Respiratory Rate 44 H 20 21 Blood Pressure 137/73 124/78 124/81 Pulse Oximetry 96 99 98 09/06/18 17:00 09/06/18 17:15 09/06/18 17:30 Temperature Pulse Rate 87 106 H 120 H Respiratory Rate 22 24 53 H Blood Pressure 126/79 133/79 154/84 H Pulse Oximetry 97 98 97 09/06/18 17:47 09/06/18 18:00 09/06/18 18:15 Temperature Pulse Rate 112 H 89 85 Respiratory Rate 41 H 24 22 Blood Pressure 137/84 133/69 120/73 Pulse Oximetry 100 98 99 09/06/18 18:30 09/06/18 18:45 09/06/18 19:00 Temperature Pulse Rate 86 87 89 Respiratory Rate 23 20 21 Blood Pressure 112/59 L 111/76 122/77 Pulse Oximetry 99 99 99 09/06/18 19:15 09/06/18 19:30 09/06/18 19:45 Temperature Pulse Rate 88 94 H 112 H Respiratory Rate 21 29 H 46 H Blood Pressure 122/77 126/76 151/92 H Pulse Oximetry 100 100 100 09/06/18 20:00 09/06/18 20:15 09/06/18 20:30 Temperature Pulse Rate 91 H 88 86 Respiratory Rate 22 26 H 25 H Blood Pressure 148/79 H 127/72 118/79 Pulse Oximetry 99 98 98 09/06/18 20:45 09/06/18 22:00 09/06/18 23:00 Temperature Pulse Rate 85 93 H 81 Respiratory Rate 24 26 H 22 Blood Pressure 120/78 128/78 Pulse Oximetry 95 96 100 09/07/18 00:00 09/07/18 01:00 09/07/18 02:00 Temperature 97.6 F Pulse Rate 84 93 H 93 H Respiratory Rate 40 H 22 24 Blood Pressure 126/76 131/82 133/77 Pulse Oximetry 100 96 98 09/07/18 03:00 09/07/18 04:00 Temperature 99.3 F Pulse Rate 107 H 89 Respiratory Rate 23 22 Blood Pressure 130/75 129/82 Pulse Oximetry 97 98 Intake & Output 09/06/18 09/06/18 09/07/18 06:59 18:59 06:59 Intake Total 1000 / 1000 Output Total 400 / 400 Balance 600 / 600 Weight 128.4 kg 131.542 kg Intake: IV 1000 / 1000 NS Inj 1,000 ML @ 70 mls/hr IV. 1000 / 1000 CONT .[id number] [facility] Rx#:[id number] Output: Urine Amount (Catheter) 400 / 400 Purewick 400 / 400 Other: # Incontinent Voids 2 Weight On Admission 128.4 kg Result Diagrams: 09/07/18 03:09 09/07/18 03:09 Objective Remarks: - Constitutional Mild respiratory distress - Routine HEENT Exam Head: Present: normocephalic, atraumatic Eye: Present: PERRL ENT: Present: mucous membranes moist - Routine Neck Exam Present: supple, full ROM. Absent: JVD, carotid bruit - Routine Chest/Breast/Axilla Exam Chest wall: Absent: tenderness, mass - Routine Respiratory Exam Absent: accessory muscle use, rhonchi, stridor, wheezes - Routine Cardiovascular Exam Present: RRR, S1, S2 - Routine Abdominal Exam Present: soft, normoactive bowel sounds. Absent: tenderness, distended - Routine Extremities Exam Absent: cyanosis, clubbing, edema - Routine Skin Exam Present: intact. Absent: cyanosis, erythema - Routine Neurological Exam General: alert, awake and oriented x3 Cranial Nerves: other (Cranial nerves II through XII are intact , minimal facial droop on the left side. Also improved a gaze deficit. Speech: Improved slurred speech Motor: strength abnormal (The patient is noted to have significantly improved paralysis of the left upper and left lower extremity, now 4 out of 5. The patient has 5/5 strength in the right upper and right lower extremity.) Sensory Exam: other (The patient initially has no significant sensation noted at all in the left upper and left lower extremity on dermatomal testing. Normal dermatomal testing on the right side.) Assessment and Plan - Assessment and Plan Plan: Acute right MCA CVA -Thrombectomy per IR -Aspirin and statins -PT and OT eval and treat -Blood pressure control -Further management per neurology Dyslipidemia -Atorvastatin -Lipid panel Diabetes mellitus -Sliding scale -Hemoglobin A1c Hypertension -Of nicardipine drip -PRN meds if needed to keep SBP less than 180 DVT GI prophylaxis -Teds SCDs -Heparin subcu started 24 hours post TPA administration -Pepcid Overall impression: Improved. ASA started. Will discuss anticoagulation with Neurology Service.
[2018-09-07] MEDS: Sod Chloride 0.9% Inj 1,000 ML IV.CONT SCH ×2 (07:33→20:37)
[2018-09-07] MEDS: Insulin NovoLIN Regular Correctional Sugar Inj SQ SCH ×3 (07:33→18:46)
--- NOTE | 2018-09-07 07:49 | P.CONCA ---
History of Present Illness Primary Care Provider: UNKNOWN Chief Complaint: Stroke History of Present Illness: 53-year-old female with a past medical history of HTN who presented with stroke. The patient was having headache and developed left-sided weakness. She presented to the ED and was found to have acute CVA and received TPA and thrombectomy with IR. Left-sided weakness has nearly resolved. She does report that she has been having shortness of breath for the past several weeks. She denies any orthopnea, leg swelling, or weight gain. She denies any chest pain or palpitations. Transthoracic echo done for stroke workup revealed EF 25 % and global hypokinesis. EKG shows NSR, PVC, LVH criteria with lateral ST changes. Review of telemetry shows occasional to frequent PVCs in bigeminal and couplet patterns. Neurology consulted and requested cardiology consult to rule out thrombotic source including MITA. Review of Systems All other systems reviewed negative except as stated in HPI [facility] - History History Provided By: Patient, Medical Record - Medical History Medical History: Medical History (Last Updated 09/07/18 @ 07:44 by JUSTIN De Jesus) Hypertension - Tobacco History Second Hand Smoke Exposure: Yes (Smoke Marijuana daily.) Smoking Status: Former smoker - Alcohol History How Often Do You Have a Drink Containing Alcohol: 2 to 4 times a month - Substance Use History Substance History: No History of Abuse - Travel History Recent Travel in the [place] Within the Last 8 Weeks: No Recent Travel Out of the Country Within the Last 8 Weeks: No - Immunization History Tetanus Immunization: Unsure Hx Influenza Vaccine This Season: No Medications and Allergies Allergies Allergy/AdvReac Type Severity Reaction Status Date / Time loratadine [From Claritin] Allergy unknown Verified 09/06/18 01:20 Home Medications Medication Instructions Recorded Confirmed Type amlodipine 10 mg PO DAILY 09/06/18 09/06/18 History amlodipine 10 mg PO DAILY 09/06/18 09/06/18 History amoxicillin 500 mg PO TID 09/06/18 09/06/18 History hydrocodone-acetaminophen 2 tab PO Q6H PRN 09/06/18 09/06/18 History ibuprofen 600 mg PO QID PRN 09/06/18 09/06/18 History ibuprofen 800 mg PO QID PRN 09/06/18 09/06/18 History metoprolol tartrate 25 mg PO BID 09/06/18 09/06/18 History naproxen 500 mg PO BID 09/06/18 09/06/18 History Active Medications: Active Medications Acetaminophen (Tylenol) 650 mg PO Q6H PRN PRN Reason: PAIN 1-10 AND/OR FEVER >101F Last Admin: 09/07/18 02:19 Dose: 650 mg Al Hydroxide/Mg Hydroxide (Milk Of Consuelo Liq) 30 ml PO Q12H PRN PRN Reason: Mild Constipation Albuterol (Duoneb Neb (Prn)) 1 ampul NEB Q2HR NEB PRN PRN Reason: WHEEZING Bisacodyl (Dulcolax Supp) 10 mg RECTAL DAILY PRN PRN Reason: SEVERE CONSITIPATION Chlorhexidine Gluconate (Chlorhexidine 2% Cloth) 3 pack TOPICAL DAILY@0400 [facility] Stop: 09/11/18 03:59 Last Admin: 09/07/18 03:18 Dose: 3 pack Chlorhexidine Gluconate (Chlorhexidine 2% Cloth) 3 pack TOPICAL DAILY@0400 PRN PRN Reason: Extra cloth needed Stop: 09/11/18 03:59 Dextrose (D50w Vial) 50 ml IV.PUSH UNSCH PRN PRN Reason: PER HYPOGLYCEMIA PROTOCOL Famotidine (Pepcid Pf Inj) 20 mg IV.PUSH Q12HR [facility] Last Admin: 09/06/18 21:45 Dose: 20 mg Glucagon (Glucagon Inj) 1 mg OTHER PRN PRN PRN Reason: for Hypoglycemia Protocol Heparin Sodium (Porcine) (Heparin Inj) 5,000 units SQ Q8H [facility] Last Admin: 09/07/18 03:17 Dose: 5,000 units Sodium Chloride (Ns Inj) 1,000 mls @ 70 mls/hr IV.CONT .[id number] [facility] Last Admin: 09/07/18 07:33 Dose: 70 mls/hr Magnesium Sulfate 4 gm/ Sodium (Chloride) 100 mls @ 50 mls/hr IV.SIG UNSCH PRN PRN Reason: For Magnesium 0.9 - 1.1 mg/dL Magnesium Sulfate 2 gm/ Sodium (Chloride) 100 mls @ 50 mls/hr IV.SIG UNSCH PRN PRN Reason: For Magnesium 1.2 - 1.6 mg/dL Potassium Chloride (Kcl 40 Meq Premix Inj) 40 meq in 100 mls @ 50 mls/hr IV.SIG Q2H PRN PRN Reason: For Potassium 2.8 - 3.2 mEq/L Potassium Chloride (Kcl 20 Meq Premix Inj) 20 meq in 100 mls @ 50 mls/hr IV.SIG Q2H PRN PRN Reason: For Potassium 3.3 - 3.5 mEq/L Potassium Chloride (Kcl 40 Meq Premix Inj) 40 meq in 100 mls @ 25 mls/hr IV.SIG UNSCH PRN PRN Reason: For Potassium 3.3 - 3.5 mEq/L Potassium Chloride (Kcl 20 Meq Premix Inj) 20 meq in 100 mls @ 50 mls/hr IV.SIG Q2H PRN PRN Reason: For Potassium 2.8 - 3.2 mEq/L Potassium Phosphate 30 mmol/ (Sodium Chloride) 260 mls @ 42 mls/hr IV.SIG UNSCH PRN PRN Reason: SEE LABEL COMMENTS Sodium Phosphate 30 mmol/ (Sodium Chloride) 260 mls @ 42 mls/hr IV.SIG UNSCH PRN PRN Reason: For Phosphorus < 2.5 mg/dL Insulin Human Regular (Novolin R Correctional Sugar Inj) 0 units SQ Q6HR [facility]; Protocol Last Admin: 09/07/18 07:33 Dose: Not Given Lactulose (Lactulose Liq) 30 ml PO DAILY PRN PRN Reason: SEVERE CONSITIPATION Magnesium Oxide (Mag-Ox) 800 mg PO UNSCH PRN PRN Reason: For Magnesium 1.2 - 1.6 mg/dL Morphine Sulfate (Morphine Inj) 2 mg IV.PUSH Q2H PRN PRN Reason: PAIN SCALE 6 TO 10 Last Admin: 09/07/18 06:11 Dose: 2 mg Ondansetron HCl (Zofran Inj) 4 mg IV.PUSH Q6H PRN PRN Reason: NAUSEA OR VOMITING Potassium Bicarb/Potassium Chloride (K-Lyte Cl Eff) 50 meq PO UNSCH PRN PRN Reason: For Potassium 3.3 - 3.5 mEq/L Potassium Phosphate (K-Phos Original) 2,000 mg PO Q4H PRN PRN Reason: Phosphorus Less Than 2.5 mg/dL Potassium Phosphate (K-Phos Original) 2,000 mg PO UNSCH PRN PRN Reason: SEE LABEL COMMENTS Senna/Docusate Sodium (Emma-Colace) 1 tab PO BID [facility] Last Admin: 09/06/18 21:46 Dose: Not Given Sennosides (Senokot) 17.2 mg PO Q12H PRN PRN Reason: Moderate Constipation Sodium Chloride (Ns Flush) 2 ml IV.FLUSH BID [facility] Last Admin: 09/06/18 21:45 Dose: 2 ml Sodium Chloride (Ns Flush) 2 ml IV.FLUSH PRN PRN PRN Reason: FLUSH AFTER USING IV ACCESS Exam Vital signs: Vital Signs 09/06/18 07:45 09/06/18 07:49 09/06/18 08:00 Temperature Pulse Rate 100 H 100 H 97 H Respiratory Rate 23 22 17 Blood Pressure 129/85 Pulse Oximetry 100 100 93 L 09/06/18 08:04 09/06/18 08:15 09/06/18 08:19 Temperature 98.2 F Pulse Rate 99 H 99 H 101 H Respiratory Rate 23 21 20 Blood Pressure 130/84 122/85 Pulse Oximetry 100 99 98 09/06/18 08:30 09/06/18 08:34 09/06/18 08:45 Temperature Pulse Rate 100 H 98 H 98 H Respiratory Rate 27 H 20 16 Blood Pressure 125/82 Pulse Oximetry 98 99 100 09/06/18 08:49 09/06/18 09:00 09/06/18 09:04 Temperature Pulse Rate 97 H 99 H 112 H Respiratory Rate 20 36 H 33 H Blood Pressure 123/81 123/81 174/108 H Pulse Oximetry 100 100 100 09/06/18 09:15 09/06/18 09:19 09/06/18 09:30 Temperature Pulse Rate 100 H 99 H 99 H Respiratory Rate 27 H 21 24 Blood Pressure 120/76 Pulse Oximetry 100 100 99 09/06/18 09:34 09/06/18 09:45 09/06/18 09:49 Temperature Pulse Rate 99 H 95 H 94 H Respiratory Rate 23 22 20 Blood Pressure 119/80 123/79 Pulse Oximetry 100 97 99 09/06/18 10:00 09/06/18 10:04 09/06/18 10:15 Temperature Pulse Rate 95 H 96 H 111 H Respiratory Rate 23 24 32 H Blood Pressure 132/79 Pulse Oximetry 99 99 98 09/06/18 10:19 09/06/18 10:30 09/06/18 10:34 Temperature Pulse Rate 99 H 90 93 H Respiratory Rate 22 22 22 Blood Pressure 123/79 121/79 Pulse Oximetry 97 99 98 09/06/18 10:45 09/06/18 10:49 09/06/18 11:00 Temperature Pulse Rate 110 H 109 H 98 H Respiratory Rate 33 H 26 H 21 Blood Pressure 139/87 Pulse Oximetry 99 99 98 09/06/18 11:04 09/06/18 11:15 09/06/18 11:19 Temperature Pulse Rate 99 H 94 H 95 H Respiratory Rate 28 H 13 18 Blood Pressure 126/82 130/86 Pulse Oximetry 98 98 99 09/06/18 11:30 09/06/18 11:45 09/06/18 11:49 Temperature Pulse Rate 92 H 92 H 94 H Respiratory Rate 21 23 26 H Blood Pressure 136/85 Pulse Oximetry 99 99 99 09/06/18 12:00 09/06/18 12:14 09/06/18 12:15 Temperature Pulse Rate 94 H 96 H 96 H Respiratory Rate 24 32 H 26 H Blood Pressure 118/79 Pulse Oximetry 99 98 98 09/06/18 12:16 09/06/18 12:30 09/06/18 12:45 Temperature Pulse Rate 95 H 95 H Respiratory Rate 22 26 H Blood Pressure 129/83 132/85 Pulse Oximetry 99 98 98 09/06/18 13:00 09/06/18 13:15 09/06/18 13:30 Temperature Pulse Rate 100 H 94 H 93 H Respiratory Rate 25 H 26 H 17 Blood Pressure 130/83 132/84 133/87 Pulse Oximetry 97 97 96 09/06/18 13:45 09/06/18 14:00 09/06/18 14:15 Temperature Pulse Rate 93 H 93 H 118 H Respiratory Rate 29 H 27 H 43 H Blood Pressure 131/89 137/80 154/95 H Pulse Oximetry 97 98 97 09/06/18 14:30 09/06/18 14:45 09/06/18 15:00 Temperature Pulse Rate 92 H 90 85 Respiratory Rate 20 25 H 24 Blood Pressure 131/85 128/80 136/81 Pulse Oximetry 97 96 98 09/06/18 15:14 09/06/18 15:15 09/06/18 15:30 Temperature Pulse Rate 93 H 108 H Respiratory Rate 25 H 29 H Blood Pressure 131/80 146/83 H Pulse Oximetry 97 97 96 09/06/18 15:45 11/13/18 16:00 09/06/18 16:15 Temperature 98.2 F Pulse Rate 98 H 94 H 90 Respiratory Rate 44 H 20 21 Blood Pressure 137/73 124/78 124/81 Pulse Oximetry 96 99 98 09/06/18 17:00 09/06/18 17:15 09/06/18 17:30 Temperature Pulse Rate 87 106 H 120 H Respiratory Rate 22 24 53 H Blood Pressure 126/79 133/79 154/84 H Pulse Oximetry 97 98 97 09/06/18 17:47 09/06/18 18:00 09/06/18 18:15 Temperature Pulse Rate 112 H 89 85 Respiratory Rate 41 H 24 22 Blood Pressure 137/84 133/69 120/73 Pulse Oximetry 100 98 99 09/06/18 18:30 09/06/18 18:45 09/06/18 19:00 Temperature Pulse Rate 86 87 89 Respiratory Rate 23 20 21 Blood Pressure 112/59 L 111/76 122/77 Pulse Oximetry 99 99 99 09/06/18 19:15 09/06/18 19:30 09/06/18 19:45 Temperature Pulse Rate 88 94 H 112 H Respiratory Rate 21 29 H 46 H Blood Pressure 122/77 126/76 151/92 H Pulse Oximetry 100 100 100 09/06/18 20:00 09/06/18 20:15 09/06/18 20:30 Temperature Pulse Rate 91 H 88 86 Respiratory Rate 22 26 H 25 H Blood Pressure 148/79 H 127/72 118/79 Pulse Oximetry 99 98 98 09/06/18 20:45 09/06/18 22:00 09/06/18 23:00 Temperature Pulse Rate 85 93 H 81 Respiratory Rate 24 26 H 22 Blood Pressure 120/78 128/78 Pulse Oximetry 95 96 100 09/07/18 00:00 09/07/18 01:00 09/07/18 02:00 Temperature 97.6 F Pulse Rate 84 93 H 93 H Respiratory Rate 40 H 22 24 Blood Pressure 126/76 131/82 133/77 Pulse Oximetry 100 96 98 09/07/18 03:00 09/07/18 04:00 09/07/18 05:00 Temperature 99.3 F Pulse Rate 107 H 89 91 H Respiratory Rate 23 22 23 Blood Pressure 130/75 129/82 110/70 Pulse Oximetry 97 98 95 09/07/18 06:00 09/07/18 07:00 Temperature Pulse Rate 91 H 90 Respiratory Rate 31 H 23 Blood Pressure 122/77 111/75 Pulse Oximetry 97 98 Intake & Output 09/06/18 09/07/18 09/07/18 18:59 06:59 18:59 Intake Total 1000 / 1000 60 / 60 1000 / 1000 Output Total 400 / 400 100 / 100 Balance 600 / 600 -40 / -40 1000 / 1000 Weight 290 lb 283 lb 4.704 oz Intake: IV 1000 / 1000 1000 / 1000 NS Inj 1,000 ML @ 70 mls/hr IV. 1000 / 1000 1000 / 1000 CONT .[id number] [facility] Rx#:[id number] Oral 60 / 60 Output: Urine Amount (Catheter) 400 / 400 100 / 100 Purewick 400 / 400 100 / 100 Other: # Voids 4 # Incontinent Voids 2 3 Narrative: GENERAL: Well-developed well-nourished. In no acute distress. NECK: No carotid bruits. No JVD. CARDIOVASCULAR: Regular rate and rhythm. No murmur appreciated. RESPIRATORY: No accessory muscle use. Clear to auscultation. Breath sounds equal bilaterally. MUSCULOSKELETAL: No clubbing or cyanosis. No edema. NEUROLOGICAL: Awake and alert. Restless. Normal speech. Strength 5/5 on the right and 4/5 on the left. Results 09/07/18 03:09 09/07/18 03:09 Cardiac Enzymes 09/06/18 09/07/18 Range/Units 01:14 03:09 AST 19 (15-37) U/L Troponin I Less than 0.02 L (0.02-0.05) ng/mL Coagulation 09/06/18 09/07/18 Range/Units 01:10 03:09 PT 9.7 L 10.4 (9.8-11.6) sec APTT 23.0 L 26.1 (23.4-31.7) sec Lipids 09/06/18 Range/Units 12:16 Triglycerides 86 (42-150) mg/dL Cholesterol 141 (120-200) mg/dL HDL Cholesterol 47.4 (40.0-60.0) mg/dL Cholesterol/HDL Ratio 2.97 Ratio CBC 09/06/18 09/07/18 Range/Units 01:20 03:09 WBC 6.6 5.2 (4.0-11.0) th/mm3 RBC 4.51 3.90 L (4.00-5.30) mil/mm3 Hgb 13.4 11.6 (11.6-15.3) gm/dL Hct 39.6 34.2 L (35.0-46.0) % Plt Count 189 162 (150-450) th/mm3 Neut # (Auto) 4.7 3.0 (1.8-7.7) th/mm3 Lymph # (Auto) 1.6 1.9 (1.0-4.8) th/mm3 [place] # (Auto) 0.3 0.3 (0.0-0.9) th/mm3 Eos # (Auto) 0.0 0.0 (0.0-0.4) th/mm3 Baso # (Auto) 0.1 0.0 (0.0-0.2) th/mm3 Comprehensive Metabolic Panel 09/07/18 Range/Units 03:09 Sodium 144 (136-145) meq/L Potassium 3.6 (3.5-5.1) meq/L Chloride 114 H (98-107) meq/L Carbon Dioxide 22.1 (21.0-32.0) meq/L BUN 9 (7-18) mg/dL Creatinine 0.90 (0.50-1.00) mg/dL Calcium 8.0 L (8.5-10.1) mg/dL AST 19 (15-37) U/L ALT 30 (10-53) U/L Alkaline Phosphatase 53 (45-117) U/L Total Protein 6.5 (6.4-8.2) g/dL Albumin 3.1 L (3.4-5.0) g/dL Intake and Output 09/06/18 09/07/18 09/07/18 22:59 06:59 14:59 Intake Total 1000 / 1000 60 / 60 1000 / 1000 Output Total 400 / 400 100 / 100 Balance 600 / 600 -40 / -40 1000 / 1000 Intake: IV 1000 / 1000 1000 / 1000 NS Inj 1,000 ML @ 70 mls/hr IV. 1000 / 1000 1000 / 1000 CONT .[id number] [facility] Rx#:[id number] Oral 60 / 60 Output: Urine Amount (Catheter) 400 / 400 100 / 100 Purewick 400 / 400 100 / 100 Other: # Voids 4 # Incontinent Voids 2 3 Weight 290 lb 283 lb 4.704 oz - Imaging and Cardiology Imaging: Impressions Cerebral Angiography 09/06/18 00:00 CONCLUSION: Successful stroke salvage thromboembolectomy for right middle cerebral artery occlusion as described in detail above. Head MRI 09/06/18 00:00 CONCLUSION: 1. Acute infarction right middle cerebral artery distribution post thrombectomy without evidence of acute blood products or cerebral edema. Chest X-Ray 09/06/18 01:14 CONCLUSION: Moderate cardiomegaly with no evidence of pulmonary edema. Head CTA 09/06/18 01:14 CONCLUSION: 1. Occlusion of the right middle cerebral artery in the distal M1 segment. Report was called by [Dr. Woods to Dr. So at 0210 hours. ] Neck CTA 09/06/18 01:14 CONCLUSION: 1. Suboptimal opacification. 2. 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 3. No significant stenosis in the common carotid or internal carotid arteries. CT CAD 09/06/18 01:15 CONCLUSION: Physiological brain perfusion parameters with RAPID analysis as above. The decision for consideration of therapy is multi factorial and multi disciplinary relying on subjective and objective clinical data. This data is not construed or intended to be the sole determinant of treatment eligibility. Head CT 09/06/18 01:20 CONCLUSION: 1. Negative noncontrast head CT. Report was called by [Dr Woods to Dr. Quesada at 0132 hours. ] Head MRA 09/06/18 17:09 CONCLUSION: 1. Negative MRA Cow ([place] [facility] [place]) non contrast. Assessment and Plan - Plan 53-year-old female with a past medical history of HTN who presented with stroke CVA: Rule out cardioembolic source. N.p.o. for MITA today. Continue telemetry monitoring while inpatient and will likely plan on outpatient 30-day event monitor if no A. fib seen. Cardiomyopathy: Transthoracic echo with EF 25% and global hypokinesis. Suspect nonischemic. No stigmata of CHF. Consider addition of lisinopril and carvedilol when cleared to resume antihypertensives s/p CVA. Discussed Condition With: Patient, RN, Dr. Cabello - Attending Attestation MITA planned for this am. patient ate crackers and applejuice NPO p MN MITA tomorrow am
--- NOTE | 2018-09-07 08:06 | P.PNNEU ---
Subjective Subjective Comments: no acute events. no cp/dyspnea. no roy. feels well Active Medications: Active Medications Acetaminophen (Tylenol) 650 mg PO Q6H PRN PRN Reason: PAIN 1-10 AND/OR FEVER >101F Last Admin: 09/07/18 02:19 Dose: 650 mg Al Hydroxide/Mg Hydroxide (Milk Of Consuelo Barrett) 30 ml PO Q12H PRN PRN Reason: Mild Constipation Albuterol (Duoneb Neb (Prn)) 1 ampul NEB Q2HR NEB PRN PRN Reason: WHEEZING Bisacodyl (Dulcolax Supp) 10 mg RECTAL DAILY PRN PRN Reason: SEVERE CONSITIPATION Chlorhexidine Gluconate (Chlorhexidine 2% Cloth) 3 pack TOPICAL DAILY@0400 [facility] Stop: 09/11/18 03:59 Last Admin: 09/07/18 03:18 Dose: 3 pack Chlorhexidine Gluconate (Chlorhexidine 2% Cloth) 3 pack TOPICAL DAILY@0400 PRN PRN Reason: Extra cloth needed Stop: 09/11/18 03:59 Dextrose (D50w Vial) 50 ml IV.PUSH UNSCH PRN PRN Reason: PER HYPOGLYCEMIA PROTOCOL Famotidine (Pepcid Pf Inj) 20 mg IV.PUSH Q12HR [facility] Last Admin: 09/06/18 21:45 Dose: 20 mg Glucagon (Glucagon Inj) 1 mg OTHER PRN PRN PRN Reason: for Hypoglycemia Protocol Heparin Sodium (Porcine) (Heparin Inj) 5,000 units SQ Q8H [facility] Last Admin: 09/07/18 03:17 Dose: 5,000 units Sodium Chloride (Ns Inj) 1,000 mls @ 70 mls/hr IV.CONT .[id number] [facility] Last Admin: 09/07/18 07:33 Dose: 70 mls/hr Magnesium Sulfate 4 gm/ Sodium (Chloride) 100 mls @ 50 mls/hr IV.SIG UNSCH PRN PRN Reason: For Magnesium 0.9 - 1.1 mg/dL Magnesium Sulfate 2 gm/ Sodium (Chloride) 100 mls @ 50 mls/hr IV.SIG UNSCH PRN PRN Reason: For Magnesium 1.2 - 1.6 mg/dL Potassium Chloride (Kcl 40 Meq Premix Inj) 40 meq in 100 mls @ 50 mls/hr IV.SIG Q2H PRN PRN Reason: For Potassium 2.8 - 3.2 mEq/L Potassium Chloride (Kcl 20 Meq Premix Inj) 20 meq in 100 mls @ 50 mls/hr IV.SIG Q2H PRN PRN Reason: For Potassium 3.3 - 3.5 mEq/L Potassium Chloride (Kcl 40 Meq Premix Inj) 40 meq in 100 mls @ 25 mls/hr IV.SIG UNSCH PRN PRN Reason: For Potassium 3.3 - 3.5 mEq/L Potassium Chloride (Kcl 20 Meq Premix Inj) 20 meq in 100 mls @ 50 mls/hr IV.SIG Q2H PRN PRN Reason: For Potassium 2.8 - 3.2 mEq/L Potassium Phosphate 30 mmol/ (Sodium Chloride) 260 mls @ 42 mls/hr IV.SIG UNSCH PRN PRN Reason: SEE LABEL COMMENTS Sodium Phosphate 30 mmol/ (Sodium Chloride) 260 mls @ 42 mls/hr IV.SIG UNSCH PRN PRN Reason: For Phosphorus < 2.5 mg/dL Insulin Human Regular (Novolin R Correctional Sugar Inj) 0 units SQ Q6HR [facility]; Protocol Last Admin: 09/07/18 07:33 Dose: Not Given Lactulose (Lactulose Liq) 30 ml PO DAILY PRN PRN Reason: SEVERE CONSITIPATION Magnesium Oxide (Mag-Ox) 800 mg PO UNSCH PRN PRN Reason: For Magnesium 1.2 - 1.6 mg/dL Morphine Sulfate (Morphine Inj) 2 mg IV.PUSH Q2H PRN PRN Reason: PAIN SCALE 6 TO 10 Last Admin: 09/07/18 06:11 Dose: 2 mg Ondansetron HCl (Zofran Inj) 4 mg IV.PUSH Q6H PRN PRN Reason: NAUSEA OR VOMITING Potassium Bicarb/Potassium Chloride (K-Lyte Cl Eff) 50 meq PO UNSCH PRN PRN Reason: For Potassium 3.3 - 3.5 mEq/L Potassium Phosphate (K-Phos Original) 2,000 mg PO Q4H PRN PRN Reason: Phosphorus Less Than 2.5 mg/dL Potassium Phosphate (K-Phos Original) 2,000 mg PO UNSCH PRN PRN Reason: SEE LABEL COMMENTS Senna/Docusate Sodium (Emma-Colace) 1 tab PO BID [facility] Last Admin: 09/06/18 21:46 Dose: Not Given Sennosides (Senokot) 17.2 mg PO Q12H PRN PRN Reason: Moderate Constipation Sodium Chloride (Ns Flush) 2 ml IV.FLUSH BID [facility] Last Admin: 09/06/18 21:45 Dose: 2 ml Sodium Chloride (Ns Flush) 2 ml IV.FLUSH PRN PRN PRN Reason: FLUSH AFTER USING IV ACCESS Allergies/Adverse Reactions: Allergies Allergy/AdvReac Type Severity Reaction Status Date / Time loratadine [From Claritin] Allergy unknown Verified 09/06/18 01:20 Review of Systems All other systems reviewed negative except as stated in HPI Physical Exam Vital signs: Vital Signs 09/06/18 08:15 09/06/18 08:19 09/06/18 08:30 Temperature 98.2 F Pulse Rate 99 H 101 H 100 H Respiratory Rate 21 20 27 H Blood Pressure 122/85 Pulse Oximetry 99 98 98 09/06/18 08:34 09/06/18 08:45 09/06/18 08:49 Temperature Pulse Rate 98 H 98 H 97 H Respiratory Rate 20 16 20 Blood Pressure 125/82 123/81 Pulse Oximetry 99 100 100 09/06/18 09:00 09/06/18 09:04 09/06/18 09:15 Temperature Pulse Rate 99 H 112 H 100 H Respiratory Rate 36 H 33 H 27 H Blood Pressure 123/81 174/108 H Pulse Oximetry 100 100 100 09/06/18 09:19 09/06/18 09:30 09/06/18 09:34 Temperature Pulse Rate 99 H 99 H 99 H Respiratory Rate 21 24 23 Blood Pressure 120/76 119/80 Pulse Oximetry 100 99 100 09/06/18 09:45 09/06/18 09:49 09/06/18 10:00 Temperature Pulse Rate 95 H 94 H 95 H Respiratory Rate 22 20 23 Blood Pressure 123/79 132/79 Pulse Oximetry 97 99 99 09/06/18 10:04 09/06/18 10:15 09/06/18 10:19 Temperature Pulse Rate 96 H 111 H 99 H Respiratory Rate 24 32 H 22 Blood Pressure 123/79 Pulse Oximetry 99 98 97 09/06/18 10:30 09/06/18 10:34 09/06/18 10:45 Temperature Pulse Rate 90 93 H 110 H Respiratory Rate 22 22 33 H Blood Pressure 121/79 Pulse Oximetry 99 98 99 09/06/18 10:49 09/06/18 11:00 09/06/18 11:04 Temperature Pulse Rate 109 H 98 H 99 H Respiratory Rate 26 H 21 28 H Blood Pressure 139/87 126/82 Pulse Oximetry 99 98 98 09/06/18 11:15 09/06/18 11:19 09/06/18 11:30 Temperature Pulse Rate 94 H 95 H 92 H Respiratory Rate 13 18 21 Blood Pressure 130/86 Pulse Oximetry 98 99 99 09/06/18 11:45 09/06/18 11:49 09/06/18 12:00 Temperature Pulse Rate 92 H 94 H 94 H Respiratory Rate 23 26 H 24 Blood Pressure 136/85 Pulse Oximetry 99 99 99 09/06/18 12:14 09/06/18 12:15 09/06/18 12:16 Temperature Pulse Rate 96 H 96 H Respiratory Rate 32 H 26 H Blood Pressure 118/79 Pulse Oximetry 98 98 99 09/06/18 12:30 09/06/18 12:45 09/06/18 13:00 Temperature Pulse Rate 95 H 95 H 100 H Respiratory Rate 22 26 H 25 H Blood Pressure 129/83 132/85 130/83 Pulse Oximetry 98 98 97 09/06/18 13:15 09/06/18 13:30 09/06/18 13:45 Temperature Pulse Rate 94 H 93 H 93 H Respiratory Rate 26 H 17 29 H Blood Pressure 132/84 133/87 131/89 Pulse Oximetry 97 96 97 09/06/18 14:00 09/06/18 14:15 09/06/18 14:30 Temperature Pulse Rate 93 H 118 H 92 H Respiratory Rate 27 H 43 H 20 Blood Pressure 137/80 154/95 H 131/85 Pulse Oximetry 98 97 97 09/06/18 14:45 09/06/18 15:00 09/06/18 15:14 Temperature Pulse Rate 90 85 Respiratory Rate 25 H 24 Blood Pressure 128/80 136/81 Pulse Oximetry 96 98 97 09/06/18 15:15 09/06/18 15:30 09/06/18 15:45 Temperature Pulse Rate 93 H 108 H 98 H Respiratory Rate 25 H 29 H 44 H Blood Pressure 131/80 146/83 H 137/73 Pulse Oximetry 97 96 96 09/06/18 16:00 09/06/18 16:15 09/06/18 17:00 Temperature 98.2 F Pulse Rate 94 H 90 87 Respiratory Rate 20 21 22 Blood Pressure 124/78 124/81 126/79 Pulse Oximetry 99 98 97 09/06/18 17:15 09/06/18 17:30 09/06/18 17:47 Temperature Pulse Rate 106 H 120 H 112 H Respiratory Rate 24 53 H 41 H Blood Pressure 133/79 154/84 H 137/84 Pulse Oximetry 98 97 100 09/06/18 18:00 09/06/18 18:15 09/06/18 18:30 Temperature Pulse Rate 89 85 86 Respiratory Rate 24 22 23 Blood Pressure 133/69 120/73 112/59 L Pulse Oximetry 98 99 99 09/06/18 18:45 09/06/18 19:00 09/06/18 19:15 Temperature Pulse Rate 87 89 88 Respiratory Rate 20 21 21 Blood Pressure 111/76 122/77 122/77 Pulse Oximetry 99 99 100 09/06/18 19:30 09/06/18 19:45 09/06/18 20:00 Temperature Pulse Rate 94 H 112 H 91 H Respiratory Rate 29 H 46 H 22 Blood Pressure 126/76 151/92 H 148/79 H Pulse Oximetry 100 100 99 09/06/18 20:15 09/06/18 20:30 09/06/18 20:45 Temperature Pulse Rate 88 86 85 Respiratory Rate 26 H 25 H 24 Blood Pressure 127/72 118/79 120/78 Pulse Oximetry 98 98 95 09/06/18 22:00 09/06/18 23:00 09/07/18 00:00 Temperature 97.6 F Pulse Rate 93 H 81 84 Respiratory Rate 26 H 22 40 H Blood Pressure 128/78 126/76 Pulse Oximetry 96 100 100 09/07/18 01:00 09/07/18 02:00 09/07/18 03:00 Temperature Pulse Rate 93 H 93 H 107 H Respiratory Rate 22 24 23 Blood Pressure 131/82 133/77 130/75 Pulse Oximetry 96 98 97 09/07/18 04:00 09/07/18 05:00 09/07/18 06:00 Temperature 99.3 F Pulse Rate 89 91 H 91 H Respiratory Rate 22 23 31 H Blood Pressure 129/82 110/70 122/77 Pulse Oximetry 98 95 97 09/07/18 07:00 Temperature Pulse Rate 90 Respiratory Rate 23 Blood Pressure 111/75 Pulse Oximetry 98 Intake & Output 09/06/18 09/07/18 09/07/18 18:59 06:59 18:59 Intake Total 1000 / 1000 60 / 60 1000 / 1000 Output Total 400 / 400 100 / 100 Balance 600 / 600 -40 / -40 1000 / 1000 Weight 131.542 kg 128.5 kg Intake: IV 1000 / 1000 1000 / 1000 NS Inj 1,000 ML @ 70 mls/hr IV. 1000 / 1000 1000 / 1000 CONT .[id number] [facility] Rx#:[id number] Oral 60 / 60 Output: Urine Amount (Catheter) 400 / 400 100 / 100 Purewick 400 / 400 100 / 100 Other: # Voids 4 # Incontinent Voids 2 3 Narrative: GENERAL: in NAD, SKIN: Warm and dry. HEAD: Atraumatic. Normocephalic. EYES: Pupils equal and round. No scleral icterus. ENT: No nasal bleeding or discharge. NECK: Trachea midline. No JVD. CARDIOVASCULAR: Regular rate and rhythm. RESPIRATORY: No accessory muscle use. GASTROINTESTINAL: Abdomen soft, non-tender, nondistended. MUSCULOSKELETAL: Extremities without clubbing, cyanosis, or edema. NEUROLOGICAL: Awake alert oriented x3, reduced left nasolabial fold, mildly dysarthric speech, left ataxic hemiparesis left upper extremity 4- out of 5, left lower extremity 3 out of 5 difficulty raising off the bed, no obvious neglect gait not assessed secondary fall risk PSYCHIATRIC: Appropriate mood and affect - Constitutional no acute distress - Routine HEENT Exam Head: Present: normocephalic Eye: Present: EOMI - Urinary Catheter Management Purewick Cath placed during this visit: no Objective Laboratory Results - last 24 hr 09/06/18 09/06/18 09/06/18 06:40 08:23 12:16 WBC RBC Hgb Hct MCV MCH MCHC RDW Plt Count MPV Neut % (Auto) Lymph % (Auto) [place] % (Auto) Eos % (Auto) Baso % (Auto) Neut # (Auto) Lymph # (Auto) [place] # (Auto) Eos # (Auto) Baso # (Auto) WBC Differential Differential Comment PT INR APTT Sodium Potassium Chloride Carbon Dioxide Anion Gap BUN Creatinine Estimated GFR POC Glucose Random Glucose Hemoglobin A1c 5.8 Calcium Phosphorus Magnesium Total Bilirubin AST ALT Alkaline Phosphatase Total Protein Albumin Triglycerides Cholesterol LDL Cholesterol, Calc HDL Cholesterol Cholesterol/HDL Ratio Nasal Screen MRSA (PCR) Not detected Not detected 09/06/18 09/06/18 09/06/18 12:16 12:29 17:19 WBC RBC Hgb Hct MCV MCH MCHC RDW Plt Count MPV Neut % (Auto) Lymph % (Auto) [place] % (Auto) Eos % (Auto) Baso % (Auto) Neut # (Auto) Lymph # (Auto) [place] # (Auto) Eos # (Auto) Baso # (Auto) WBC Differential Differential Comment PT INR APTT Sodium Potassium Chloride Carbon Dioxide Anion Gap BUN Creatinine Estimated GFR POC Glucose 102 112 H Random Glucose Hemoglobin A1c Calcium Phosphorus Magnesium Total Bilirubin AST ALT Alkaline Phosphatase Total Protein Albumin Triglycerides 86 Cholesterol 141 LDL Cholesterol, Calc 76 HDL Cholesterol 47.4 Cholesterol/HDL Ratio 2.97 Nasal Screen MRSA (PCR) 09/06/18 09/07/18 09/07/18 23:26 03:09 03:09 WBC 5.2 RBC 3.90 L Hgb 11.6 Hct 34.2 L MCV 87.8 MCH 29.7 MCHC 33.9 RDW 14.9 Plt Count 162 MPV 8.1 Neut % (Auto) 57.2 Lymph % (Auto) 36.3 [place] % (Auto) 5.9 Eos % (Auto) 0.3 Baso % (Auto) 0.3 Neut # (Auto) 3.0 Lymph # (Auto) 1.9 [place] # (Auto) 0.3 Eos # (Auto) 0.0 Baso # (Auto) 0.0 WBC Differential . Differential Comment Auto diff final PT 10.4 INR 1.0 APTT 26.1 Sodium Potassium Chloride Carbon Dioxide Anion Gap BUN Creatinine Estimated GFR POC Glucose 113 H Random Glucose Hemoglobin A1c Calcium Phosphorus Magnesium Total Bilirubin AST ALT Alkaline Phosphatase Total Protein Albumin Triglycerides Cholesterol LDL Cholesterol, Calc HDL Cholesterol Cholesterol/HDL Ratio Nasal Screen MRSA (PCR) 09/07/18 09/07/18 03:09 05:20 WBC RBC Hgb Hct MCV MCH MCHC RDW Plt Count MPV Neut % (Auto) Lymph % (Auto) [place] % (Auto) Eos % (Auto) Baso % (Auto) Neut # (Auto) Lymph # (Auto) [place] # (Auto) Eos # (Auto) Baso # (Auto) WBC Differential Differential Comment PT INR APTT Sodium 144 Potassium 3.6 Chloride 114 H Carbon Dioxide 22.1 Anion Gap 8 BUN 9 Creatinine 0.90 Estimated GFR 80 L POC Glucose 102 Random Glucose 115 H Hemoglobin A1c Calcium 8.0 L Phosphorus 2.1 L Magnesium 1.8 Total Bilirubin 1.3 H AST 19 ALT 30 Alkaline Phosphatase 53 Total Protein 6.5 Albumin 3.1 L Triglycerides Cholesterol LDL Cholesterol, Calc HDL Cholesterol Cholesterol/HDL Ratio Nasal Screen MRSA (PCR) Review/Management - Diagnosis (1) Acute right MCA stroke Code(s): I63.511 - Cerebral infarction due to unspecified occlusion or stenosis of right middle cerebral artery Status: Acute Current Visit: Yes (2) Hypertension Code(s): I10 - Essential (primary) hypertension Status: Acute Current Visit : Yes - Review/Management Plan: Right MCA stroke, status post successful right MCA thromboembolectomy Significant improvement in left-sided strength Etiology of stroke? Possibly cardioembolic 2/2 ejection fraction, rule out atrial fibrillation Recommendation strength improved aspirin seen by cardiology. will get their input if any role of coumadin with depressed ejection fraction and apical hypokinesis can go to [facility] with tele therapy probable inpt rehab
[2018-09-07] MEDS: Famotidine PF Inj 20 MG/2 ML Vial IV.PUSH SCH ×2 (09:22→20:36)
[2018-09-07] MEDS: Senna/Docusate Sodium 8.6/50 MG Tablet PO SCH ×2 (09:23→20:37)
[2018-09-07] MEDS: Aspirin 325 MG Tablet PO SCH (09:23)
[2018-09-08] MEDS: Chlorhexidine Gluconate 2% 1 Pack (2 Cloths) TOPICAL SCH (04:03)
[2018-09-08] MEDS: Heparin - SQ 10,000 UNITS/ML Vial SQ SCH ×2 (04:05→20:08)
--- NOTE | 2018-09-08 07:52 | P.PNCA ---
Subjective Interval history: Patient denies any palpitations, shortness of breath, or leg swelling. She feels left-sided weakness is improving. Telemetry shows sinus rhythm with occasional PVCs, no other significant arrhythmias noted. N.p.o. for MITA today. Medications and Allergies Allergies Allergy/AdvReac Type Severity Reaction Status Date / Time loratadine [From Claritin] Allergy unknown Verified 09/06/18 01:20 Home Medications Medication Instructions Recorded Confirmed Type amlodipine 10 mg PO DAILY 09/06/18 09/06/18 History amlodipine 10 mg PO DAILY 09/06/18 09/06/18 History amoxicillin 500 mg PO TID 09/06/18 09/06/18 History hydrocodone-acetaminophen 2 tab PO Q6H PRN 09/06/18 09/06/18 History ibuprofen 600 mg PO QID PRN 09/06/18 09/06/18 History ibuprofen 800 mg PO QID PRN 09/06/18 09/06/18 History metoprolol tartrate 25 mg PO BID 09/06/18 09/06/18 History naproxen 500 mg PO BID 09/06/18 09/06/18 History Active Medications: Active Medications Acetaminophen (Tylenol) 650 mg PO Q6H PRN PRN Reason: PAIN 1-10 AND/OR FEVER >101F Last Admin: 09/07/18 20:36 Dose: 650 mg Al Hydroxide/Mg Hydroxide (Milk Of Consuelo Barrett) 30 ml PO Q12H PRN PRN Reason: Mild Constipation Albuterol (Duoneb Neb (Prn)) 1 ampul NEB Q2HR NEB PRN PRN Reason: WHEEZING Aspirin (Aspirin) 325 mg PO DAILY [facility] Last Admin: 09/07/18 09:23 Dose: 325 mg Bisacodyl (Dulcolax Supp) 10 mg RECTAL DAILY PRN PRN Reason: SEVERE CONSITIPATION Chlorhexidine Gluconate (Chlorhexidine 2% Cloth) 3 pack TOPICAL DAILY@0400 [facility] Stop: 09/11/18 03:59 Last Admin: 09/08/18 04:03 Dose: Not Given Chlorhexidine Gluconate (Chlorhexidine 2% Cloth) 3 pack TOPICAL DAILY@0400 PRN PRN Reason: Extra cloth needed Stop: 09/11/18 03:59 Dextrose (D50w Vial) 50 ml IV.PUSH UNSCH PRN PRN Reason: PER HYPOGLYCEMIA PROTOCOL Famotidine (Pepcid Pf Inj) 20 mg IV.PUSH Q12HR [facility] Last Admin: 09/07/18 20:36 Dose: 20 mg Glucagon (Glucagon Inj) 1 mg OTHER PRN PRN PRN Reason: for Hypoglycemia Protocol Heparin Sodium (Porcine) (Heparin Inj) 5,000 units SQ Q8H [facility] Last Admin: 09/08/18 04:05 Dose: 5,000 units Sodium Chloride (Ns Inj) 1,000 mls @ 70 mls/hr IV.CONT .[id number] [facility] Last Admin: 09/07/18 20:37 Dose: 70 mls/hr Magnesium Sulfate 4 gm/ Sodium (Chloride) 100 mls @ 50 mls/hr IV.SIG UNSCH PRN PRN Reason: For Magnesium 0.9 - 1.1 mg/dL Magnesium Sulfate 2 gm/ Sodium (Chloride) 100 mls @ 50 mls/hr IV.SIG UNSCH PRN PRN Reason: For Magnesium 1.2 - 1.6 mg/dL Potassium Chloride (Kcl 40 Meq Premix Inj) 40 meq in 100 mls @ 50 mls/hr IV.SIG Q2H PRN PRN Reason: For Potassium 2.8 - 3.2 mEq/L Potassium Chloride (Kcl 20 Meq Premix Inj) 20 meq in 100 mls @ 50 mls/hr IV.SIG Q2H PRN PRN Reason: For Potassium 3.3 - 3.5 mEq/L Potassium Chloride (Kcl 40 Meq Premix Inj) 40 meq in 100 mls @ 25 mls/hr IV.SIG UNSCH PRN PRN Reason: For Potassium 3.3 - 3.5 mEq/L Potassium Chloride (Kcl 20 Meq Premix Inj) 20 meq in 100 mls @ 50 mls/hr IV.SIG Q2H PRN PRN Reason: For Potassium 2.8 - 3.2 mEq/L Potassium Phosphate 30 mmol/ (Sodium Chloride) 260 mls @ 42 mls/hr IV.SIG UNSCH PRN PRN Reason: SEE LABEL COMMENTS Sodium Phosphate 30 mmol/ (Sodium Chloride) 260 mls @ 42 mls/hr IV.SIG UNSCH PRN PRN Reason: For Phosphorus < 2.5 mg/dL Lactulose (Lactulose Liq) 30 ml PO DAILY PRN PRN Reason: SEVERE CONSITIPATION Magnesium Oxide (Mag-Ox) 800 mg PO UNSCH PRN PRN Reason: For Magnesium 1.2 - 1.6 mg/dL Morphine Sulfate (Morphine Inj) 2 mg IV.PUSH Q2H PRN PRN Reason: PAIN SCALE 6 TO 10 Last Admin: 09/07/18 06:11 Dose: 2 mg Ondansetron HCl (Zofran Inj) 4 mg IV.PUSH Q6H PRN PRN Reason: NAUSEA OR VOMITING Potassium Bicarb/Potassium Chloride (K-Lyte Cl Eff) 50 meq PO UNSCH PRN PRN Reason: For Potassium 3.3 - 3.5 mEq/L Potassium Phosphate (K-Phos Original) 2,000 mg PO Q4H PRN PRN Reason: Phosphorus Less Than 2.5 mg/dL Potassium Phosphate (K-Phos Original) 2,000 mg PO UNSCH PRN PRN Reason: SEE LABEL COMMENTS Senna/Docusate Sodium (Emma-Colace) 1 tab PO BID [facility] Last Admin: 09/07/18 20:37 Dose: 1 tab Sennosides (Senokot) 17.2 mg PO Q12H PRN PRN Reason: Moderate Constipation Sodium Chloride (Ns Flush) 2 ml IV.FLUSH BID [facility] Last Admin: 09/07/18 20:37 Dose: 2 ml Sodium Chloride (Ns Flush) 2 ml IV.FLUSH PRN PRN PRN Reason: FLUSH AFTER USING IV ACCESS Physical Exam Vital signs: Vital Signs 09/07/18 08:00 09/07/18 09:00 09/07/18 09:33 Temperature 98.2 F Pulse Rate 90 90 Respiratory Rate 24 23 Blood Pressure 169/80 H 134/79 Pulse Oximetry 98 100 09/07/18 10:00 09/07/18 11:00 09/07/18 12:00 Temperature 98.6 F Pulse Rate 95 H 87 90 Respiratory Rate 23 18 16 Blood Pressure 130/78 118/76 108/58 L Pulse Oximetry 96 96 100 09/07/18 13:00 09/07/18 14:00 09/07/18 15:00 Temperature Pulse Rate 85 114 H 91 H Respiratory Rate 21 29 H 22 Blood Pressure 120/70 132/87 131/81 Pulse Oximetry 96 80 L 99 09/07/18 16:00 09/07/18 20:00 09/08/18 00:00 Temperature 97.7 F 98.0 F Pulse Rate 93 H 102 H 88 Respiratory Rate 25 H 16 18 Blood Pressure 128/72 129/91 H 127/87 Pulse Oximetry 100 98 100 09/08/18 02:07 09/08/18 04:00 09/08/18 04:01 Temperature 98.0 F Pulse Rate 99 H Respiratory Rate 18 20 18 Blood Pressure 125/53 L Pulse Oximetry 99 Intake & Output 09/07/18 09/08/18 09/08/18 18:59 06:59 18:59 Intake Total 1300 / 1300 1000 / 1000 Output Total 400 / 400 Balance 1300 / 1300 600 / 600 Weight 283 lb 4.704 oz Intake: IV 1000 / 1000 1000 / 1000 NS Inj 1,000 ML @ 70 mls/hr IV. 1000 / 1000 1000 / 1000 CONT .[id number] [facility] Rx#:[id number] Oral 300 / 300 Output: Urine Amount (Catheter) 400 / 400 Purewick 400 / 400 Other: # Voids 0 # Bowel Movements 0 Narrative: GENERAL: Well-developed well-nourished. In no acute distress. NECK: No carotid bruits. No JVD. CARDIOVASCULAR: Regular rate and rhythm. No murmur appreciated. RESPIRATORY: No accessory muscle use. Clear to auscultation. Breath sounds equal bilaterally. MUSCULOSKELETAL: No clubbing or cyanosis. No edema. NEUROLOGICAL: Awake and alert. Normal speech. Strength 5/5 bilaterally. - Urinary Catheter Management Purewick Cath placed during this visit: no Results 09/07/18 03:09 09/07/18 03:09 Cardiac Enzymes 09/07/18 Range/Units 03:09 AST 19 (15-37) U/L Coagulation 09/07/18 Range/Units 03:09 PT 10.4 (9.8-11.6) sec APTT 26.1 (23.4-31.7) sec Lipids 09/06/18 Range/Units 12:16 Triglycerides 86 (42-150) mg/dL Cholesterol 141 (120-200) mg/dL HDL Cholesterol 47.4 (40.0-60.0) mg/dL Cholesterol/HDL Ratio 2.97 Ratio CBC 09/07/18 Range/Units 03:09 WBC 5.2 (4.0-11.0) th/mm3 RBC 3.90 L (4.00-5.30) mil/mm3 Hgb 11.6 (11.6-15.3) gm/dL Hct 34.2 L (35.0-46.0) % Plt Count 162 (150-450) th/mm3 Neut # (Auto) 3.0 (1.8-7.7) th/mm3 Lymph # (Auto) 1.9 (1.0-4.8) th/mm3 [place] # (Auto) 0.3 (0.0-0.9) th/mm3 Eos # (Auto) 0.0 (0.0-0.4) th/mm3 Baso # (Auto) 0.0 (0.0-0.2) th/mm3 Comprehensive Metabolic Panel 09/07/18 Range/Units 03:09 Sodium 144 (136-145) meq/L Potassium 3.6 (3.5-5.1) meq/L Chloride 114 H (98-107) meq/L Carbon Dioxide 22.1 (21.0-32.0) meq/L BUN 9 (7-18) mg/dL Creatinine 0.90 (0.50-1.00) mg/dL Calcium 8.0 L (8.5-10.1) mg/dL AST 19 (15-37) U/L ALT 30 (10-53) U/L Alkaline Phosphatase 53 (45-117) U/L Total Protein 6.5 (6.4-8.2) g/dL Albumin 3.1 L (3.4-5.0) g/dL Intake and Output 09/07/18 09/08/18 09/08/18 22:59 06:59 14:59 Intake Total 1300 / 1300 Output Total 400 / 400 Balance 1300 / 1300 -400 / -400 Intake: IV 1000 / 1000 NS Inj 1,000 ML @ 70 mls/hr IV. 1000 / 1000 CONT .[id number] [facility] Rx#:[id number] Oral 300 / 300 Output: Urine Amount (Catheter) 400 / 400 Purewick 400 / 400 Other: # Voids 0 # Bowel Movements 0 Weight 283 lb 4.704 oz - Imaging and Cardiology Imaging: Impressions Cerebral Angiography 09/06/18 00:00 CONCLUSION: Successful stroke salvage thromboembolectomy for right middle cerebral artery occlusion as described in detail above. Head MRI 09/06/18 00:00 CONCLUSION: 1. Acute infarction right middle cerebral artery distribution post thrombectomy without evidence of acute blood products or cerebral edema. Head MRA 09/06/18 17:09 CONCLUSION: 1. Negative MRA [place] ([place]) non contrast. Assessment and Plan - Plan 53-year-old female with a past medical history of HTN who presented with stroke CVA: Rule out cardioembolic source. N.p.o. for MITA today. Continue telemetry monitoring while inpatient and will likely plan on outpatient 30-day event monitor if no A. fib seen. Cardiomyopathy: Transthoracic echo with EF 25% and global hypokinesis. Suspect nonischemic. No stigmata of CHF. Consider addition of lisinopril and carvedilol pending MITA results today. Discussed Condition With: Patient, Dr. Cabello - Attending Attestation New onset cardiomyopathy, likely nonischemic Transesophageal echocardiogram showed ejection fraction less than 20%. Mild to moderate mitral regurgitation. Mild aortic insufficiency. There was no left atrial appendage thrombus. There is no intra-atrial shunting consistent with a patent foramen ovale. Plan: Stroke management per neurology. No obvious cardioembolic source noted on transesophageal echocardiogram. Given lack of risk factors and global hypokinesis, cardiomyopathy is most likely consistent with nonischemic etiology. Will initiate guideline directed medical therapy. Will need 3-month follow-up transthoracic echocardiogram to evaluate for improvement in ejection fraction.
[2018-09-08] MEDS: Aspirin 325 MG Tablet PO SCH (08:16)
[2018-09-08] MEDS: Senna/Docusate Sodium 8.6/50 MG Tablet PO SCH ×2 (08:17→20:09)
[2018-09-08] MEDS: Famotidine PF Inj 20 MG/2 ML Vial IV.PUSH SCH ×2 (08:17→20:09)
--- NOTE | 2018-09-08 10:45 | P.PNIM ---
Subjective Interval history: pt currently not interested in rehab. her mother is encouraging her to consider. Physical Exam Vital signs: Last Vital Signs Temp 97.6 F 09/08/18 08:00 Pulse 97 H 09/08/18 08:00 Resp 19 09/08/18 08:16 BP 113/69 09/08/18 08:00 Pulse Ox 95 09/08/18 08:00 Narrative: on bedside commode no facial droop or dysarthria heart reg lung cta abd s/nt ext no edema Results Labs CBC & Chem 7: 09/07/18 03:09 09/07/18 03:09 Assessment and Plan Assessment (1) Acute right MCA stroke: Code(s): I63.511 - Cerebral infarction due to unspecified occlusion or stenosis of right middle cerebral artery Status: Acute Plan acute thromboembolectomy by IR concern for emobolic cva htn severe cardiomyopathy. EF 25% pt going for MITA today. PT/OT statin/asa rehab planned dvt prophylaxis. addendum: MITA neg for pfo or thrombus. EF 20%. f/u cardiology for 3month TTE. will discuss with neuro. ?hypercoag panel. would have her f/u cardiology for event monitor Pt currently seems to be declining rehab. Progress Note: Quality VTE Deep Vein Thrombosis/Pulmonary Embolism Present on Admission: No
[2018-09-08] MEDS ORDERED: Chlorhexidine Gluconate 2% 1 Pack (2 Cloths) TOPICAL ONE (12:00)
[2018-09-08] MEDS ORDERED: Metoprolol Tartrate 25 MG Tablet PO ONE (12:00)
--- NOTE | 2018-09-08 12:42 | ECHRPT ---
Indication: CVA/TIA CONCLUSIONS Severely dilated left ventricle. Wall thickness is normal. The left ventricular systolic function is severely reduced with an estimated ejection fraction less than 20%. There is global left ventricular dysfunction. The left atrial size is mildly dilated. Normal left atrial appendage size with no evidence of thrombus formation. Normal atrial septal thickness without atrial level shunting by limited color doppler interrogation. No atrial level shunt is demonstrated by color flow Doppler or agitated saline imaging. Mild thickening of the mitral valve leaflets. [id number] mitral valve regurgitation. Trileaflet aortic valve. Aortic valve sclerosis is present. Mild aortic valve regurgitation. Mild thickening of the tricuspid valve leaflets. There is trace tricuspid valve regurgitation. Pulmo nary arterial systolic pressure could not be estimated due to an insufficient tricuspid valve regurgitati on doppler jet for measurement. BP: / HR: Rhythm: Technical Quality: Medications Complications Proc. Components FINDINGS LEFT VENTRICLE Severely dilated left ventricle. Wall thickness is normal. The left ventricular systolic function is severely reduced with an estimated ejection fraction less than 20%. There is global left ventricular dysfunction. RIGHT VENTRICLE Normal right ventricular size and systolic function. LEFT ATRIUM The left atrial size is mildly dilated. RIGHT ATRIUM The right atrial size is normal. ATRIAL APPENDAGES Normal left atrial appendage size with no evidence of thrombus formation. ATRIAL SEPTUM Normal atrial septal thickness without atrial level shunting by limited color doppler interrogation. No atrial level shunt is demonstrated by color flow Doppler or agitated saline imaging. AORTA The aortic root and proximal ascending aorta are normal in size on limited imaging. MITRAL VALVE Mild thickening of the mitral valve leaflets. [id number] mitral valve regurgitation. AORTIC VALVE Trileaflet aortic valve. Aortic valve sclerosis is present. Mild aortic valve regurgitation. TRICUSPID VALVE Mild thickening of the tricuspid valve leaflets. There is trace tricuspid valve regurgitation. Pulmo nary arterial systolic pressure could not be estimated due to an insufficient tricuspid valve regurgitati on doppler jet for measurement. VESSELS The inferior vena cava is normal in size. PULMONARY VALVE The pulmonary valve is not well visualized. PERICADIUM No pericardial effusion. Dionicio Cabello MD, FACC (Electronically Signed) Final Date:08 September 2018 12:41
[2018-09-08] MEDS: Sod Chloride 0.9% Inj 1,000 ML IV.CONT SCH (20:08)
[2018-09-08] MEDS: Acetaminophen 325 MG Tablet PO PRN (20:09)
[2018-09-09] MEDS: Sod Chloride 0.9% Inj 1,000 ML IV.CONT SCH (01:37)
[2018-09-09] MEDS: Chlorhexidine Gluconate 2% 1 Pack (2 Cloths) TOPICAL SCH (03:53)
[2018-09-09] MEDS: Heparin - SQ 10,000 UNITS/ML Vial SQ SCH ×3 (03:59→13:10)
--- NOTE | 2018-09-09 08:06 | P.PNCA ---
Subjective Interval history: Patient denies any shortness of breath, orthopnea, leg swelling, palpitations. Telemetry shows episodes of regular, narrow complex tachycardia in the 120s overnight. Medications and Allergies Active Medications: Active Medications Acetaminophen (Tylenol) 650 mg PO Q6H PRN PRN Reason: PAIN 1-10 AND/OR FEVER >101F Last Admin: 09/08/18 20:09 Dose: 650 mg Al Hydroxide/Mg Hydroxide (Milk Of Magnesia Liq) 30 ml PO Q12H PRN PRN Reason: Mild Constipation Albuterol (Duoneb Neb (Prn)) 1 ampul NEB Q2HR NEB PRN PRN Reason: WHEEZING Aspirin (Aspirin) 325 mg PO DAILY [facility] Last Admin: 09/08/18 08:16 Dose: 325 mg Bisacodyl (Dulcolax Supp) 10 mg RECTAL DAILY PRN PRN Reason: SEVERE CONSITIPATION Carvedilol (Coreg) 3.125 mg PO BID [facility] Chlorhexidine Gluconate (Chlorhexidine 2% Cloth) 3 pack TOPICAL DAILY@0400 [facility] Stop: 09/11/18 03:59 Last Admin: 09/09/18 03:53 Dose: Not Given Chlorhexidine Gluconate (Chlorhexidine 2% Cloth) 3 pack TOPICAL DAILY@0400 PRN PRN Reason: Extra cloth needed Stop: 09/11/18 03:59 Dextrose (D50w Vial) 50 ml IV.PUSH UNSCH PRN PRN Reason: PER HYPOGLYCEMIA PROTOCOL Famotidine (Pepcid Pf Inj) 20 mg IV.PUSH Q12HR [facility] Last Admin: 09/08/18 20:09 Dose: 20 mg Glucagon (Glucagon Inj) 1 mg OTHER PRN PRN PRN Reason: for Hypoglycemia Protocol Heparin Sodium (Porcine) (Heparin Inj) 5,000 units SQ Q8H [facility] Last Admin: 09/09/18 03:59 Dose: 5,000 units Sodium Chloride (Ns Inj) 1,000 mls @ 70 mls/hr IV.CONT .[id number] [facility] Last Admin: 09/09/18 01:37 Dose: 70 mls/hr Lactulose (Lactulose Liq) 30 ml PO DAILY PRN PRN Reason: SEVERE CONSITIPATION Lisinopril (Prinivil) 2.5 mg PO DAILY [facility] Morphine Sulfate (Morphine Inj) 2 mg IV.PUSH Q2H PRN PRN Reason: PAIN SCALE 6 TO 10 Last Admin: 09/07/18 06:11 Dose: 2 mg Ondansetron HCl (Zofran Inj) 4 mg IV.PUSH Q6H PRN PRN Reason: NAUSEA OR VOMITING Senna/Docusate Sodium (Emma-Colace) 1 tab PO BID [facility] Last Admin: 09/08/18 20:09 Dose: 1 tab Sennosides (Senokot) 17.2 mg PO Q12H PRN PRN Reason: Moderate Constipation Sodium Chloride (Ns Flush) 2 ml IV.FLUSH BID [facility] Last Admin: 09/08/18 20:09 Dose: 2 ml Sodium Chloride (Ns Flush) 2 ml IV.FLUSH PRN PRN PRN Reason: FLUSH AFTER USING IV ACCESS Last Admin: 09/08/18 08:18 Dose: 2 ml Allergies Allergy/AdvReac Type Severity Reaction Status Date / Time loratadine [From Claritin] Allergy unknown Verified 09/06/18 01:20 Home Medications Medication Instructions Recorded Confirmed Type amlodipine 10 mg PO DAILY 09/06/18 09/06/18 History amlodipine 10 mg PO DAILY 09/06/18 09/06/18 History amoxicillin 500 mg PO TID 09/06/18 09/06/18 History hydrocodone-acetaminophen 2 tab PO Q6H PRN 09/06/18 09/06/18 History ibuprofen 600 mg PO QID PRN 09/06/18 09/06/18 History ibuprofen 800 mg PO QID PRN 09/06/18 09/06/18 History metoprolol tartrate 25 mg PO BID 09/06/18 09/06/18 History naproxen 500 mg PO BID 09/06/18 09/06/18 History Physical Exam Vital signs: Vital Signs 09/08/18 08:16 09/08/18 16:00 09/08/18 20:00 Temperature 98.0 F 98.3 F Pulse Rate 104 H 100 H Respiratory Rate 19 20 20 Blood Pressure 139/89 145/75 H Pulse Oximetry 98 99 09/08/18 21:00 09/09/18 00:00 09/09/18 00:30 Temperature 98.2 F Pulse Rate 99 H 89 78 Respiratory Rate 18 Blood Pressure 138/67 Pulse Oximetry 100 09/09/18 03:50 09/09/18 04:00 Temperature 98.5 F Pulse Rate 102 H Respiratory Rate 18 18 Blood Pressure 139/79 Pulse Oximetry 95 Intake & Output 09/08/18 09/09/18 09/09/18 18:59 06:59 18:59 Intake Total 1000 / 1000 Balance 1000 / 1000 Weight 294 lb 1.546 oz Intake: IV 1000 / 1000 NS Inj 1,000 ML @ 70 mls/hr IV. 1000 / 1000 CONT .[id number] ROSALINA Rx#:[id number] Other: # Voids 2 4 Narrative: GENERAL: Well-developed well-nourished. In no acute distress. NECK: No carotid bruits. No JVD. CARDIOVASCULAR: Regular rate and rhythm. No murmur appreciated. RESPIRATORY: No accessory muscle use. Clear to auscultation. Breath sounds equal bilaterally. MUSCULOSKELETAL: No clubbing or cyanosis. No edema. NEUROLOGICAL: Awake and alert. Normal speech. - Urinary Catheter Management Purewick Cath placed during this visit: no Results 09/07/18 03:09 09/07/18 03:09 Intake and Output 09/08/18 09/09/18 09/09/18 22:59 06:59 14:59 Other: # Voids 4 Weight 294 lb 1.546 oz Assessment and Plan - Plan 53-year-old female with a past medical history of HTN who presented with stroke CVA: No evidence of cardioembolic source by MITA or telemetry monitoring. Stroke workup/treatment per neurology. Cardiomyopathy: TTE and MITA show EF 20% with global hypokinesis. Strongly suspect nonischemic etiology. No stigmata of CHF. Start low-dose lisinopril and carvedilol for GDMT. Plan for repeat transthoracic echo in 3 months. Discharge planning. Discussed Condition With: Patient, Dr. Cabello
[2018-09-09] MEDS: Famotidine PF Inj 20 MG/2 ML Vial IV.PUSH SCH (08:51)
[2018-09-09] MEDS: Aspirin 325 MG Tablet PO SCH (08:51)
[2018-09-09] MEDS: Senna/Docusate Sodium 8.6/50 MG Tablet PO SCH (08:53)
[2018-09-09 08:56] VITALS: RESP 20
[2018-09-09] MEDS ORDERED: Lisinopril 5 MG Tablet PO SCH (09:00)
--- NOTE | 2018-09-09 12:23 | P.PNIM ---
Subjective Interval history: pt eager for dc. refusing rehab. Physical Exam Vital signs: Last Vital Signs Temp 98.2 F 09/09/18 08:00 Pulse 95 H 09/09/18 08:00 Resp 20 09/09/18 08:00 BP 142/82 H 09/09/18 08:00 Pulse Ox 100 09/09/18 09:14 Narrative: on bedside commode no facial droop or dysarthria heart reg lung cta abd s/nt ext no edema Results Labs CBC & Chem 7: 09/07/18 03:09 09/07/18 03:09 Assessment and Plan Assessment (1) Acute right MCA stroke: Code(s): I63.511 - Cerebral infarction due to unspecified occlusion or stenosis of right middle cerebral artery Status: Acute Plan acute thromboembolectomy by IR concern for embolic cva htn severe cardiomyopathy. EF 25% asa/statin. MITA neg for pfo or thrombus. EF 20%. f/u cardiology for 3month TTE. with Dr Cabello. discussed with neuro. hypercoag panel drawn and pending. f/u neuro for result needs to establish a new pcp at [facility] [place]. her pcp left. arranged appt for event monitor at [facility]. to r/o afib. bb/juan j added per cardiology for nicm. refused snf/rehab. hhc/pt/ot Progress Note: Quality VTE Deep Vein Thrombosis/Pulmonary Embolism Present on Admission: No
--- NOTE | 2018-09-09 12:36 | P.DCO ---
Diagnosis (1) Acute right MCA stroke: Status: Acute Physical Therapy Order: Evaluate and treat and Improve ambulation Occupational Therapy Order: Evaluate and treat and Improve ADL Home Health Nursing Order: Medical education, Signs/symptoms of disease process, Medication education-adverse effect and Nursing assessment with vital signs Case Management Consult Case Management Consult-Home Health: Yes I have seen patient Sujata Veronica on 09/09/18. My clinical findings support the need for the requested home health care services because: I certify that my clinical findings support that this patient is homebound because:
[2018-09-09 16:40] VITALS: BP 130/87; PULSE 96; TEMP 98.1; O2SAT 94
[2018-09-13 15:23] LABS: Factor V Leiden Mutation Negative (Negative); Protein C Functional 100 % (70 - 150); Protein S Antigen Free 141 % (65 - 160)
[2018-09-13 15:51] LABS: Dil Russell Viper Venom Conf ( ND (NEGATIVE); Dil Russell Viper Venom Time M ND (CORRECTED); Lupus Anticoagulant PTT Screen 32 seconds (< OR = 40)
--- NOTE | 2018-10-05 18:04 | P.DS ---
DS: Providers Date of admission: 09/06/18 02:14 Primary care physician: UNKNOWN Consults: 09/06/18 01:14 Consult to Neurology Stat Consulting Provider: Ursula Britt For STAT consult, spoke directly to:: d/w Dr. Britt by phone in ED Preferred Shake Loader:: Ursula Britt Reason for Consultation: Brain Attack Spoke with:: cady verified dr vika stewart Date Notified:: 09/06/18 Time Notified:: 02:00 Ordering Provider: JOSEPHINE 09/06/18 08:58 Consult to Neurology Routine Consulting Provider: Shakeel Sylvester Preferred Shake Loader:: Ursula Britt Reason for Consultation: right MCA CVA Status post TPA administration Notified:: Office Spoke with:: Myrna Date Notified:: 09/06/18 Time Notified:: 09:15 Ordering Provider: GALINA 09/06/18 16:46 Consult to Cardiology Routine Consulting Provider: Dionicio Cabello Does the patient have a Retail Loan Officer who follows them?: No Preferred Balling Head Tender:: Dionicio Cabello Reason for Consultation: Reviewed 2D echo. Consideration for MITA, loop recorder young patient with embolic appearing stroke Notified:: Office Spoke with:: MALLORY Date Notified:: 09/06/18 Time Notified:: 16:52 Ordering Provider: JOSH 09/06/18 21:07 Consult to Hospitalist Routine Consulting Provider: Itz Romero Reason for Consultation: AMS Notified:: Service Spoke with:: Rosa Date Notified:: 09/06/18 Time Notified:: 08:21 Ordering Provider: DOMINGA 09/07/18 13:12 Consult to Hospitalist Routine Consulting Provider: Stew Richardson Reason for Consultation: Medical management Notified:: Service Spoke with:: PATRICK Date Notified:: 09/07/18 Time Notified:: 13:22 Ordering Provider: MIKE 09/09/18 12:53 HUB Only Consult Order Routine Consulting Provider: Mario Chery,Agency Brief History from admission: 53 year old female presents with a history of calling her friend regarding of severe headache sometime prior to arrival. According to ambulance services the patient was last seen normal sometime between 8 and 9 PM. Upon the friends arrival the patient was assisted out of bed and fell to the ground. The patient had flaccid weakness of the left upper and left lower extremity noted. The patient had a left-sided facial droop and slurred speech. Stroke alert was called prior to arrival. The patient reports having a headache on the right side of her head over the denominational. The patient had one episode of vomiting prior to arrival. The patient denies any prior history of stroke. The patient does have a prior history of hypertension and diabetes mellitus. She denies any prior history of cardiac arrhythmia. On review of systems otherwise, the patient denies having any known recent fevers, cough, congestion, neck pain, chest pain, shortness of breath, abdominal pain, diarrhea, or urinary symptoms. DS: Diagnosis Discharge Diagnosis (1) Acute right MCA stroke: Status: Acute DS: Summary Assessment and Plan (1) Acute right MCA stroke: Code(s): I63.511 - Cerebral infarction due to unspecified occlusion or stenosis of right middle cerebral artery Status: Acute Plan acute thromboembolectomy by IR concern for embolic cva htn severe cardiomyopathy. EF 25% asa/statin upon discharge MITA neg for pfo or thrombus. EF 20%. f/u cardiology for 3month repeat TTE. with Dr Cabello. discussed with neuro. hypercoag panel drawn and pending. f/u neuro for result needs to establish a new pcp at [facility] [place]. her pcp left. arranged appt for event monitor at [facility]. to r/o afib. bb/juan j added per cardiology for nicm. refused snf/rehab. hhc/pt/ot Time Spent with Patient Total time spent providing and/or coordinating discharge services: Quality: Stroke Last date observed well: 09/05/18 Last time observed well: 20:00 Quality: VTE Deep Vein Thrombosis/Pulmonary Embolism Present on Admission: No Results Impressions ITS Impressions Cerebral Angiography 09/06/18 00:00 CONCLUSION: Successful stroke salvage thromboembolectomy for right middle cerebral artery occlusion as described in detail above. Head MRI 09/06/18 00:00 CONCLUSION: 1. Acute infarction right middle cerebral artery distribution post thrombectomy without evidence of acute blood products or cerebral edema. Chest X-Ray 09/06/18 01:14 CONCLUSION: Moderate cardiomegaly with no evidence of pulmonary edema. Head CTA 09/06/18 01:14 CONCLUSION: 1. Occlusion of the right middle cerebral artery in the distal M1 segment. Report was called by [Dr. Woods to Dr. So at 0210 hours. ] Neck CTA 09/06/18 01:14 CONCLUSION: 1. Suboptimal opacification. 2. 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 3. No significant stenosis in the common carotid or internal carotid arteries. CT CAD 09/06/18 01:15 CONCLUSION: Physiological brain perfusion parameters with RAPID analysis as above. The decision for consideration of therapy is multi factorial and multi disciplinary relying on subjective and objective clinical data. This data is not construed or intended to be the sole determinant of treatment eligibility. Head CT 09/06/18 01:20 CONCLUSION: 1. Negative noncontrast head CT. Report was called by [Dr Woods to Dr. Quesada at 0132 hours. ] Head MRA 09/06/18 17:09 CONCLUSION: 1. Negative MRA [place] ([place] [facility] [place]) non contrast. Discharge Plan Discharge Disposition Patient Disposition: /Home Health Service Discharge Condition Condition: Stable Discharge Order Discharge Orders: Discharge Order (Routine); Ordered 09/09/18 Ordered By: Itz Romero Discharge Details Anticipated Discharge Date: 09/09/18 Discharge Comment: dc home today after hhc/pt arranged. Physicians Team Primary Care Provider: UNKNOWN, Attending Provider: Stew Richardson Other Providers: Ursula Britt ; Itz Romero ; Shakeel Sylvester ; Dionicio Cabello ; Stew Richardson ; [facility],Agency Rxs /Orders / Referrals /Forms Prescriptions: New aspirin 325 mg Tablet 325 mg PO DAILY Qty: 180 RF: 0 carvedilol [Coreg] 3.125 mg Tablet 3.125 mg PO BID Qty: 60 RF: 3 lisinopril 5 mg Tablet 2.5 mg PO DAILY Qty: 60 RF: 3 Continue hydrocodone-acetaminophen 5-325 mg Tablet 2 tab PO Q6H PRN (Reason: Pain) RF: 0 Discontinued amoxicillin 500 mg Capsule 500 mg PO TID RF: 0 ibuprofen 800 mg Tablet 800 mg PO QID PRN (Reason: Pain) RF: 0 amlodipine 10 mg Tablet 10 mg PO DAILY RF: 0 ibuprofen 600 mg Tablet 600 mg PO QID PRN (Reason: Pain) RF: 0 metoprolol tartrate 25 mg Tablet 25 mg PO BID RF: 0 amlodipine 10 mg Tablet 10 mg PO DAILY RF: 0 naproxen 500 mg Tablet 500 mg PO BID RF: 0 Referrals: Shakeel Sylvester MD [Physician] - See Instructions (2-3 weeks. f/u pending labs. f/u cva.) Dionicio Cabello MD [Physician] - See Instructions (f/u 3 weeks. you need an event monitor placed on 09/19 and then repeat echo on the heart 3months.) UNKNOWN, [Primary Care Provider] - See Instructions Status ED Status: Left Department Discharge Information Discharge Date/Time: 09/09/18 16:40
== END 2018-09-09 16:40 | disposition home health service (06) | DRG 24 ==
LOC: NEPC 01:08 → NEDA 02:14 → N03 06:16 → N05 09-07 17:16
PROVIDERS: ADMIT Hospitalist; ATTEND Hospitalist
CPT/HCPCS: 0042T; 61645; 70450; 70496; 70498; 70544; 70551; 71010; 71045; 76497; 76499; 76937; 80048; 80053; 80061; 80307; 81001; 81240; 81241; 82550; 82948; 82962; 83036; 83735; 84100; 84484; 84702; 85025; 85303; 85306; 85384; 85610; 85613; 85670; 85730; 86146; 86147; 86850; 86900; 86901; 87641; 92526; 92610; 93005; 93306; 93312; 93320; 93325; 94664; 97116; 97162; 97167; 97530; 99291; A4646; C1760; C1769; C1887; C1893; C1894; G0195; J0330; J0690; J1644; J2270; J2370; J2405; J2704; J3010; J7030; Q9949; Q9967